=== PATIENT | female | born 1955 | race Caucasian/White ===

== ENCOUNTER 2019-07-10 14:35 | Emergency (ER) | payer OTHER, SELFPAY ==
--- NOTE | 2019-07-10 | RAD_ITS ---
STUDY: X-RAY CHEST REASON FOR EXAM: Female, 63 years old. SYNCOPAL EPISODE 07/07/19. SHE FELL AND HIT HER HEAD TECHNIQUE: Single AP portable view of the chest. COMPARISON: None. FINDINGS: The lungs are clear and expanded. There is no demonstrated pleural abnormality. Normal size heart. Normal mediastinum and jose miguel. Normal visualized pulmonary arteries. There are calcified plaques of the aortic arch. Normal visualized thoracic spine. Normal visualized ribs, clavicles, and shoulders. There is no demonstrated abnormality of the visualized soft tissue structures of the upper abdomen. RAD/Chest 1 View (Portable) IMPRESSION: Calcified plaques of the aortic arch. No acute cardiopulmonary disease process is seen. Electronically Signed: Herman Thomas MD at 16:14 EST , Service support ,
[2019-07-10 14:36] VITALS: BP 172/79; PULSE 97; RESP 15; TEMP 36.8; O2SAT 98; BMI 21.8
--- NOTE | 2019-07-10 15:29 | ED.VISSUMM ---
- ER Visit Summary Date of Service: 07/10/19 Chief Complaint: Passed out on Friday 3 days ago History of Present Illness: The patient is a 63 F no seen in past medical history. No significant surgeries. Patient currently does not have a physician. She is on no medications. She does smoke half a pack of cigarettes a day and previously had been treated for alcohol abuse. Patient states on Friday she was at home walking in her kitchen felt her heart fluttering. And passed out. There was a brief loss of conscious. She did hit her head. She denies any head or neck pain. No headache. No vomiting or diarrhea. She was instructed by the urgent care to come in the day this happened she did not have time and presents today. Physical Examination: Older female no acute distress vital signs are stable afebrile. Pulse ox 90% on room air no signs hypoxia. H EENT exam unremarkable. Pupils round reactive light. Extra motions are intact. She has mild tenderness posterior scalp but there is no large hematoma. No laceration or dried blood. C-spine nontender. Trachea midline. No lymphadenopathy. Lungs clear to auscultation bilaterally. Heart regular rhythm no murmur rate about 90. Chest were nontender. Abdomen soft nontender. Normal bowel sounds no peritoneal signs. Pelvic girdle intact. Nontender. Patient is moving all 4 extremities. Neurovascular intact. No deformity. Nontender. 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 Dorsi plantarflexion intact bilaterally. No edema. Back nontender. Neurologically she is awake and alert. No focal motor or sensory deficits. NIH score of 0. Fingertip to nose and [id number] both within normal limits. Test Results: This x-ray shows normal cardiac silhouette mediastinum. Read as normal both myself and the radiologist. One-view portable. CT brain showed no acute abnormality read by the radiologist reviewed by me. EKG sinus rhythm rate of 65 with no acute signs of CA or ischemia. CBC normal. Hemoglobin 13. Chemistries normal normal creatinine gap. Troponin normal. Patient ambulated to the restroom without any difficulty. Therefore clinically orthostatics are negative. Emergency Department Course and Treatment: Female with a syncopal event also with a head injury when she fell. Exam is very benign. My concern with the syncope was that this is possibly been a dysrhythmia. Treatment Plan: Exam she is doing well at 1722. She will be given a primary care physician to follow-up with her syncope. She may need a Holter or event monitor. She knows return if worse. Disposition: Discharge Impression: Acute syncope Acute fall with head injury This note was generated with [employer] dictation software. It may contain incorrect words, spelling, and punctuation that were not noted in review of the chart prior to signing ED Disposition - Plan for ED Patient: Referrals: NOT,DEFINED [NON-STAFF] -
--- NOTE | 2019-07-10 15:32 | CT_ITS ---
STUDY: CT BRAIN WITHOUT CONTRAST REASON FOR EXAM: Female, 63 years old. SYNCOPE/STRUCK HEAD 07/07, HTN, HX ALCOHOL USE RADIATION DOSAGE (If Supplied By Facility): CTDIvol = ( 44.99 ) mGy, DLP = ( 745.49 ) mGycm TECHNIQUE: Transaxial CT imaging of the brain was performed without administration of intravenous contrast material. Individualized dose optimization techniques were used for this CT. COMPARISON: No relevant priors. FINDINGS: Normal soft tissue structures. Normal calvarium. Normal size ventricles and extra-axial spaces for the patient''s age. Normal white matter tracts of the cerebral hemispheres. Normal basal ganglia and thalami. Normal brainstem. Normal cerebellum. There is no intracranial hemorrhage. There are no findings of an acute ischemic infarction. Normal visualized paranasal sinuses. CT/Brain/Head without Contrast IMPRESSION: Normal unenhanced CT scan of the brain. Electronically Signed: Herman Thomas MD at 16:47 EST , Service support ,
--- NOTE | 2019-07-10 15:39 | EKG12_ITS ---
Test Reason : Blood Pressure : / mmHG Vent. Rate : 084 BPM Atrial Rate : 084 BPM P-R Int : 138 ms QRS Dur : 074 ms QT Int : 406 ms P-R-T Axes : 062 020 047 degrees QTc Int : 479 ms Normal sinus rhythm with sinus arrhythmia Possible Left atrial enlargement Anterior infarct , age undetermined Abnormal ECG Confirmed by MANOJ WEAVER, ILYA ([id number]), business editor TL BANEGAS ([id number]) on 07/13/2019 8:34:45 AM Referred By: HALINA Confirmed By:ILYA ARANDA MD
[2019-07-10 16:21] VITALS: BP 171/71; PULSE 84; RESP 17; O2SAT 98
[2019-07-10 16:24] LABS: Basophil# 0.02 X10^3/uL; Basophil% 0.3 % (0-1); Eosinophils% 1.3 % (0-5); Hemoglobin 13.5 g/dL (12.0-15.0); Lymphocyte % 25.8 % (19-41); Mean Corp Hgb Conc 33.8 g/dL (32-36); Mean Corpuscular Hgb 32.5 pg (27.0-32.0); Mean Corpuscular Volume 96.2 fL (81-99); Mean Platelet Vol. 9.7 fl (6.2-12.0); Monocyte# 0.62 X10^3/uL; NRBC Flagged by Analyzer 0 % (0-5); Neutrophil % 64.3 % (47-70); Platelet Count 263 K/mm3 (150-450); RBC Distribution Width CV 13.2 % (11.6-14.6); RBC Distribution Width SD 47.1 fl (35.1-43.9); Red Blood Count 4.16 M/mm3 (4.2-5.4); White Blood Count 7.8 K/mm3 (4.4-11.0)
[2019-07-10 16:46] LABS: Anion Gap 4 (5-15); BUN 11 mg/dL (7-18); BUN/Creat Ratio 16.6 RATIO (10-20); Calcium,Total 9.4 mg/dL (8.5-10.1); Chloride 106 mmol/L (98-107); Creatinine, Serum 0.66 mg/dL (0.55-1.02); EST Glomerular Filtration Rate 95 mL/min (>60); Est Glom Filt Rate - Afr Amer 115 mL/min (>60); Glucose 96 mg/dL (74-106); Potassium 3.9 mmol/L (3.5-5.1); Sodium Level 138 mmol/L (136-145)
[2019-07-10 17:15] VITALS: BP 166/73; PULSE 86; RESP 22; O2SAT 99
--- NOTE | 2019-07-10 17:25 | ED.DEP ---
ED Disposition - Plan for ED Patient: Disposition: Home or Assisted Living Instructions: SYNCOPE, Unk Cause Referrals: Ramesh Avalos MD [STAFF PHYSICIAN] - As soon as possible Additional Instructions: Follow-up with the doctor listed for further evaluation. Return to the ER if you pass out again. Or you are feeling worse. Stop smoking.
== END 2019-07-10 17:35 | disposition home or self-care (01) ==
PROVIDERS: Emergency Provider Emergency Medicine
DX: R55 Syncope and collapse (principal); S06.9X9A Unspecified intracranial injury with loss of consciousness of unspecified duration, initial encounter; X58.XXXA Exposure to other specified factors, initial encounter; Y93.01 Activity, walking, marching and hiking; Y92.000 Kitchen of unspecified non-institutional (private) residence as the place of occurrence of the external cause; I10 Essential (primary) hypertension; F17.210 Nicotine dependence, cigarettes, uncomplicated
CPT/HCPCS: 70450; 71045; 80048; 84484; 85025; 93005; 99284; A4216

== ENCOUNTER → 2019-10-20 12:02 | Outpatient (CLI) | payer OTHER, SELFPAY ==
--- NOTE | 2019-10-20 12:18 | CDU_ITS ---
Reason For Study: BILATERAL CAROTID BRUITS Rt. Velocities/BP Lt. Velocities/BP Prox CCA 91.2/14.2 cm/sec. Prox CCA 101.8/18.3 cm/sec. Mid CCA 80.7/14.2 cm/sec. Mid CCA 87.0/15.8 cm/sec. Dist CCA 48.1/11.6 cm/sec. Dist CCA 74.8/15.8 cm/sec. Prox ICA 85.8/29.4 cm/sec. Prox ICA 120.4/30.9 cm/sec. Mid ICA 87.1/26.9 cm/sec. Mid ICA 113.1/30.9 cm/sec. Dist ICA 94.4/22.0 cm/sec. Dist ICA 92.0/31.8 cm/sec. Rt. ICA/CCA = 94.4/80.7=1.2. Lt. ICA/CCA = 120.4/84.0=1.4. Prox ECA 103.9/10.8 cm/sec. Prox ECA 95.6/10.9 cm/sec. Rt. Vert. 82.2/18.3 cm/sec. Lt. Vert. 72.3/19.5 cm/sec. Right Extracranial There is homogeneous, smooth atherosclerotic plaque noted in the right common carotid artery. There is heterogeneous, irregular atherosclerotic plaque noted in the right internal carotid artery. There is heterogeneous, smooth atherosclerotic plaque noted in the right external carotid artery. Antegrade flow is noted in the right vertebral artery. Left Extracranial There is homogeneous, smooth atherosclerotic plaque noted in the left common carotid artery. There is heterogeneous, irregular atherosclerotic plaque noted in the left internal carotid artery. There is intimal thickening but no significant atherosclerotic plaque noted in the left external carotid artery. Antegrade flow is noted in the left vertebral artery. Procedure Carotid Duplex 91991. The exam was diagnostic. Exam performed in department. Interpretation Summary Mild (<50%) stenosis right extracranial internal carotid. Mild (<50%) stenosis left extracranial internal carotid. Flow within the vertebral arteries is antegrade bilaterally. Ordering Physician: Debo Edwards Referring Physician: Debo Edwards Performed By: Geovanna Malave, JACEK, RVT
--- NOTE | 2019-10-20 14:00 | STRESSREP_ITS ---
Stress Test Report Treadmill EKG: Resting EKG: Normal sinus rhythm, normal axis, poor progression across the precordium most likely secondary to lead misplacement. Treadmill EKG: The patient exercised according to a Marek protocol for 3 minutes and 9 seconds achieving a workload of 4.70 METS. The resting heart rate was 81 bpm and ramez to maximum 1 5 5 bpm which represents 100% of the maximal age- predicted heart rate. Resting blood pressure was 158/82, and ramez to max of 212/84. Test was terminated due to attainment target heart rate and dyspnea. During exercise the patient's heart rate increased as expected. The patient had no dynamic EKG changes to suggest ischemia. No arrhythmias noted. Conclusions normal, adequate, treadmill EKG. Negative for ischemia by EKG criteria. No anginal symptoms noted. No arrhythmias noted. Hypertensive blood pressure response to exercise. Poor exercise capacity for age. Test terminated due to dyspnea which may be an anginal equivalent. Recommend clinical correlation or alternative mode of testing if coronary occlusive disease is strongly suspected. Patient tolerated procedure well. No complications.
== END ==
PROVIDERS: Referring Provider Family Medicine; Visit Provider Family Medicine
DX: R94.31 Abnormal electrocardiogram [ECG] [EKG] (principal); R09.89 Other specified symptoms and signs involving the circulatory and respiratory systems
CPT/HCPCS: 93017; 93880

== ENCOUNTER 2020-03-02 23:39 | Inpatient (IN) | payer MEDICARE, SELFPAY ==
[2020-03-02 23:39] VITALS: BP 145/92; PULSE 101; RESP 18; TEMP 36.4; O2SAT 95; BMI 23.9
[2020-03-03] VITALS (11 sets, daily range): BP systolic 131–150; BP diastolic 63–86; PULSE 100–118; RESP 16–18; TEMP 36.5–37.1; O2SAT 93–96; BMI 20.3; BMI 20.4
--- NOTE | 2020-03-03 00:12 | ED.DCSUM_ITS ---
History of Present Illness Chief Complaint: ETOH Intox Informant: Patient Narrative: Patient presents requesting detox. She is a chronic alcoholic. She underwent detox about 15 months ago, and again 2 or 3 months ago. She followed up at [facility], but did not feel she got the appropriate treatment, she states I need a psychiatrist as well referring to the fact that she has a psychologic component to her addiction. She presents with her significant other supporting her, she does not have any withdrawal symptoms right now, as she recently has drank alcohol. She denies any recent injury, illness, or physical symptoms right now. She admits to being depressed about her alcohol problem, but is not suicidal. She denies any recent exposure to COVID-19 that she knows of. She drinks about 1 bottle or less of vodka per day and no other addictive substances except for cigarettes. - Past Medical History (1) Hypertension Status: Chronic (2) Alcoholism Status: Chronic Past Medical History - Allergies and Home Meds Allergies/Adverse Reactions: Allergies latex Allergy (Verified 03/02/20 23:43) Hives Penicillins [PCN] Allergy (Verified 03/02/20 23:42) Anaphylaxis Primary Care Physician: Care Physician,No Primary [Primary Care Provider] - Lives: Spouse/ Significant Other Smoking Status: Current every day smoker Alcohol: Heavy Drugs: None Review of Systems General: Denies: Chills, Fever, Sweats Eyes: Denies: Visual changes - bilaterally, Diplopia ENT: Denies: Rhinorrhea, Sore throat Cardiovascular: Denies: Chest pain, Palpitations Respiratory: Denies: Dyspnea, Cough, Dyspnea on exertion Gastrointestinal: Denies: Abdominal pain, Nausea, Vomiting, Diarrhea, Melena, Hematochezia Genitourinary: Denies: Dysuria, Hematuria, Frequency Musculoskeletal: Denies: Back pain, Extremity Pain Skin: Denies: Rash, Wounds Neurological: Denies: Headache, Weakness, Numbness Psych: Reports: Depression. Denies: Suicidal thoughts, Suicidal ideations Physical Exam Vital Signs/Narrative: Vital Signs Temp Pulse Resp BP Pulse Ox 03/02/20 23:39 97.6 F L 101 H 18 145/92 H 95 Inital Vital Signs reviewed: Yes General: Well nourished, Well developed, No Acute Distress Head: Normocephalic, Atraumatic Eyes: Perrl, EOMI ENT: Moist mucous membranes, No rhinorrhea Neck: Supple, Nontender Cardiovascular: Regular rate, Regular rhythm, No murmurs Respiratory: No distress, CTA bilaterally, Chest nontender Abdomen: Soft, Nontender, Nondistended, Normal bowel sounds Back: Nontender, Normal Inspection Extremities: Nontender, No edema Skin: Normal color, No rash Neurological: Alert, Oriented x3, Cranial nerves II-XII grossly intact, Normal Strength, Normal Sensation, - - Intoxicated, cooperative Psychological: Normal Mood, Depressed, Tearful Diagnostic/Tx/Re-eval Laboratory Results 03/03/20 03/03/20 03/03/20 00:35 00:35 00:35 WBC 5.7 RBC 4.20 Hgb 13.6 Hct 39.4 MCV 93.8 MCH 32.4 H MCHC 34.5 RDW Std Deviation 45.4 H RDW Coeff of Clari 13.2 Plt Count 131 L MPV 10.3 Immature Gran % (Auto) 0.400 Neut % (Auto) 70.9 H Lymph % (Auto) 18.9 L [place] % (Auto) 9.2 Eos % (Auto) 0.4 Baso % (Auto) 0.2 Absolute Neuts (auto) 4.0 Absolute Lymphs (auto) 1.07 Nucleated RBC % 0 Sodium 131 L Potassium 3.8 Chloride 88 L Carbon Dioxide 28.0 Anion Gap 15 BUN 13 Creatinine 0.64 Estim Creat Clear Calc 45.78 Est GFR (MDRD) Af Amer 119 Est GFR (MDRD) Non-Af 98 BUN/Creatinine Ratio 20.2 H Glucose 87 Calcium 9.4 Total Bilirubin 1.60 H AST 526 H ALT 253 H Alkaline Phosphatase 152 H Total Protein 8.3 H Albumin 4.1 Globulin 4.2 Albumin/Globulin Ratio 1.0 Urine Opiates Screen Urine Methadone Screen Ur Barbiturates Screen Ur Phencyclidine Scrn Ur Amphetamines Screen U Methamphetamin-MDMA U Benzodiazepines Scrn Urine Cocaine Screen U Cannabinoids Screen Ur Drug Screen Comment Ethyl Alcohol Cancelled 03/03/20 03/03/20 00:45 01:20 WBC RBC Hgb Hct MCV MCH MCHC RDW Std Deviation RDW Coeff of Clari Plt Count MPV Immature Gran % (Auto) Neut % (Auto) Lymph % (Auto) [place] % (Auto) Eos % (Auto) Baso % (Auto) Absolute Neuts (auto) Absolute Lymphs (auto) Nucleated RBC % Sodium Potassium Chloride Carbon Dioxide Anion Gap BUN Creatinine Estim Creat Clear Calc Est GFR (MDRD) Af Amer Est GFR (MDRD) Non-Af BUN/Creatinine Ratio Glucose Calcium Total Bilirubin AST ALT Alkaline Phosphatase Total Protein Albumin Globulin Albumin/Globulin Ratio Urine Opiates Screen NEGATIVE Urine Methadone Screen NEGATIVE Ur Barbiturates Screen NEGATIVE Ur Phencyclidine Scrn NEGATIVE Ur Amphetamines Screen NEGATIVE U Methamphetamin-MDMA NEGATIVE U Benzodiazepines Scrn NEGATIVE Urine Cocaine Screen NEGATIVE U Cannabinoids Screen NEGATIVE Ur Drug Screen Comment Ethyl Alcohol 279.0 - Medical Decision Making Patient has mildly elevated liver enzymes consistent with alcohol injury, mildly elevated total bilirubin. She is not clinically jaundiced. Will discuss with hospitalist for admission for inpatient detox from alcohol. ED Disposition - Plan for ED Patient: Disposition: Acute Care Hospital [facility] Diagnosis: Alcohol dependence, Alcoholism Referrals: Care Physician,No Primary [Primary Care Provider] -
[2020-03-03 00:55] LABS: Absolute Lymphocyte Count 1.07 X10^3/uL (0.83-4.51); Basophil# 0.01 X10^3/uL; Basophil% 0.2 % (0-1); Eosinophil# 0.02 X10^3/uL; Eosinophils% 0.4 % (0-5); Hematocrit 39.4 % (37-47); Hemoglobin 13.6 g/dL (12.0-15.0); Lymphocyte # 1.07 X10^3/ul (4.0); Lymphocyte % 18.9 % (19-41); Mean Corp Hgb Conc 34.5 g/dL (32-36); Mean Corpuscular Hgb 32.4 pg (27.0-32.0); Mean Corpuscular Volume 93.8 fL (81-99); Mean Platelet Vol. 10.3 fl (6.2-12.0); Monocyte# 0.52 X10^3/uL; Monocyte% 9.2 % (0-10); NRBC Flagged by Analyzer 0 % (0-5); Neutrophil # 4.01 X10^3/uL (2.7-7.7); Neutrophil % 70.9 % (47-70); Platelet Count 131 K/mm3 (150-450); RBC Distribution Width CV 13.2 % (11.6-14.6); RBC Distribution Width SD 45.4 fl (35.1-43.9); White Blood Count 5.7 K/mm3 (4.4-11.0)
[2020-03-03 01:11] LABS: AST(SGOT) 526 U/L (15-37); Alanine Aminotransfer ALT/SGPT 253 U/L (13-56); Albumin, Serum 4.1 g/dL (3.2-5.0); Alkaline Phosphatase 152 U/L (45-117); Anion Gap 15 (5-15); BUN 13 mg/dL (7-18); BUN/Creat Ratio 20.2 RATIO (10-20); Calcium,Total 9.4 mg/dL (8.5-10.1); Chloride 88 mmol/L (98-107); Creatinine, Serum 0.64 mg/dL (0.55-1.02); EST Glomerular Filtration Rate 98 mL/min (>60); Est Glom Filt Rate - Afr Amer 119 mL/min (>60); Estimated Creatinine Clearance 45.78 ml/min; Globulin 4.2 g/dL (2.2-4.2); Glucose 87 mg/dL (74-106); Potassium 3.8 mmol/L (3.5-5.1); Protein, Total 8.3 g/dL (6.4-8.2); Sodium Level 131 mmol/L (136-145)
[2020-03-03 01:44] LABS: Amphetamine Urine VISTA NEGATIVE (<1000 ng/mL); Barbiturate Urine VISTA NEGATIVE (< 200 ng/mL); Benzodiazepine Urine VISTA NEGATIVE (< 200 ng/mL); Cocaine Urine VISTA NEGATIVE (< 300 ng/mL); Ecstacy Urine VISTA NEGATIVE (< 500 ng/mL); Methadone Urine VISTA NEGATIVE (< 300 ng/mL); PCP Urine VISTA NEGATIVE (< 25 ng/mL); THC Urine VISTA NEGATIVE (< 50 ng/mL); Vista UDS pH Range 6
--- NOTE | 2020-03-03 03:17 | HP.PCM_ITS ---
History of Present Illness Date of Admission: 03/03/20 Chief Complaint: EtOH use The patient is a 64 year old F with a PMH as below who presents to the hospital with alcohol abuse history. She is recent in the hospital few months ago for alcohol withdrawal. She goes to 180 intermittently but states that usually she is on and off with drinking and only starts drinking again when she has difficulty at home. Alcohol level was 279 on admission. AST and ALT were both elevated, and an appropriate ratio for alcohol use. Past Medical History Past Medical History (Chronic Problems): Chronic Problems Hypertension (Chronic) Alcoholism (Chronic) Allergies latex Allergy (Verified 03/02/20 23:43) Hives Penicillins [PCN] Allergy (Verified 03/02/20 23:42) Anaphylaxis Home Medications: Ambulatory Orders Medication Instructions Recorded Amlodipine [Norvasc] 5 mg PO DAILY 03/02/20 Surgical History: no surgical history Lives: Spouse/ Significant Other Smoking Status: Current every day smoker Tobacco Use: Cigarettes Alcohol: Heavy Drugs: None - *Family History Maternal History Items: Diabetes, High Cholesterol, Heart Disease, Hypertension Paternal History Items: - - Aortic aneurysm Review of Systems Constitutional: Denies: Chills, Fever, Weight Change HEENT: Denies: Head Aches, Sinus Congestion, Sinus Drainage Cardiovascular: Denies: Chest Pain, Palpitations Respiratory: Denies: Cough, Shortness of breath at rest, Sputum production Gastrointestinal: Denies: Abdominal Pain, Nausea, Vomiting Genitourinary: Denies: Dysuria Musculoskeletal: Denies: Joint Pain, Joint Tenderness Skin: Denies: Rash, Wounds Neurological: Denies: Numbness, Tingling, Focal weakness Psychiatric: Reports: Anxiety, Depression Hematologic/ Lymphatic: Denies: Easy Bruising, Easy Bleeding VTE Information - Inpt Only VTE Present on Admission: No Patient Problems: Active and Suspected Problems Alcohol dependence (Acute) - Physical Exam Vitals/I&O's: Vital Signs Temp Pulse Resp BP Pulse Ox 98.5 F 114 H 18 131/66 H 93 03/03/20 02:21 03/03/20 02:21 03/03/20 02:21 03/03/20 02:21 03/03/20 02:21 Oxygen Delivery Method Room Air Weight: 114 lb 13.773 oz Body Mass Index (BMI) 20.3 General: Alert, Oriented x3, Cooperative, No apparent distress, - - Thin HEENT: Atraumatic, PERRLA, EOMI, Normocephalic Oral: Moist Mucosa Neck: Supple, No JVD Lungs: Clear to auscultation, Normal air movement, No rhonchi, No rales, Wheezes - Mild wheeze mostly on the left Cardiovascular: Regular rate, Regular Rhythm, Normal S1, Normal S2, No murmurs Abdomen: Soft, Non Tender, Non-Distended, No Hepato-splenomegaly Extremities: No edema, Capillary Refill Less than 3 Seconds Skin: No rashes, No breakdown Neurological: Neuro grossly intact, Sensory exam intact to light touch and pain Psych/Mental Status: Anxious Laboratory Results 03/03/20 00:35: WBC 5.7, RBC 4.20, Hgb 13.6, Hct 39.4, MCV 93.8, MCH 32.4 H, MCHC 34.5, RDW Std Deviation 45.4 H, RDW Coeff of Clari 13.2, Plt Count 131 L, MPV 10.3, Immature Gran % (Auto) 0.400, Neut % (Auto) 70.9 H, Lymph % (Auto) 18.9 L , [place] % (Auto) 9.2, Eos % (Auto) 0.4, Baso % (Auto) 0.2, Absolute Neuts (auto) 4.0, Absolute Lymphs (auto) 1.07, Nucleated RBC % 0 03/03/20 00:35: Sodium 131 L, Potassium 3.8, Chloride 88 L, Carbon Dioxide 28.0, Anion Gap 15, BUN 13, Creatinine 0.64, Estim Creat Clear Calc 45.78, Est GFR (MDRD) Af Amer 119, Est GFR (MDRD) Non-Af 98, BUN/Creatinine Ratio 20.2 H, Glucose 87, Calcium 9.4, Total Bilirubin 1.60 H, AST 526 H, ALT 253 H, Alkaline Phosphatase 152 H, Total Protein 8.3 H, Albumin 4.1, Globulin 4.2, A lbumin/Globulin Ratio 1.0 03/03/20 00:35: Ethyl Alcohol Cancelled 03/03/20 00:45: Urine Opiates Screen NEGATIVE, Urine Methadone Screen NEGATIVE, Ur Barbiturates Screen NEGATIVE, Ur Phencyclidine Scrn NEGATIVE, Ur Amphetamines Screen NEGATIVE, U Methamphetamin-MDMA NEGATIVE, U Benzodiazepines Scrn NEGATIVE, Urine Cocaine Screen NEGATIVE, U Cannabinoids Screen NEGATIVE, Ur Drug Screen Comment 03/03/20 01:20: Ethyl Alcohol 279.0 Current Medications Nutritional Formula (Lactose Free) (Ensure Enlive) 120 ml PO 4X/DAY MARLENY Sodium Chloride () 10 - 40 ml IV UD PRN PRN Reason: SALINE FLUSH Assessment/Plan All Active Problems Alcohol dependence (Acute) 1. Alcohol abuse -AST:ALT is elevated and appropriate ratio -We will start her on alcohol withdrawal protocol with phenobarb taper -Plan for 180 at discharge 2. HTN -Blood pressure stable -Continue with Norvasc 3. Tobacco abuse -She does not want any nicotine replacement at this time -Discussed cessation DVT: Ambulation Inpatient E&M: 17893 Init Hosp L2
[2020-03-03] MEDS: Phenobarbital 32.4 MG Tablet 64.8 MG PO ×6 (04:16→23:48)
[2020-03-03] MEDS: Thiamine Hydrochloride 100 MG Tablet PO (08:28)
[2020-03-03] MEDS: Folic Acid 1 MG Tablet PO (08:28)
[2020-03-03] MEDS: amLODIPine 5 MG Tablet PO (08:28)
--- NOTE | 2020-03-03 10:34 | ADDICTION ---
This magnetic tape typewriter operator met attempted to meet with patient in her room. Patient stated that she was very tired and presented as mildly disoriented and unable to effectively process assessments and discharge planning. She requested to meet with someone tomorrow to complete required documentation. This magnetic tape typewriter operator informed MS3 SW and will inform 24 Hour Navigator that she will need to be seen on 03/04/2020.
[2020-03-03] MEDS: Loperamide 2 MG Capsule PO (14:35)
[2020-03-03] MEDS: hydrOXYzine PAM 25 MG Capsule 50 MG PO (15:25)
--- NOTE | 2020-03-03 17:02 | ECHOD_ITS ---
Reason For Study: Arrhythmia Procedure This was a 2D Doppler, Color Flow transthoracic echocardiogram. Exam performed portable in patient room. Left Ventricle Normal left ventricle. Concentric left ventricular hypertrophy. Sigmoid septum present with dynamic outflow obstruction. The estimated ejection fraction is 70 %. Stage 1 diastolic dysfunction. Right Ventricle Normal systolic function. Atria Normal left atrium. Normal right atrium. Mitral Valve There is mild to moderate mitral annular calcification. Mild (1+) mitral valve insufficiency. Tricuspid Valve Mild tricuspid valve insufficiency. Right ventricular systolic pressure estimated to be 30 mmHg. Aortic Valve Mild focal aortic valve calcification. Mild aortic stenosis. Peak aortic valve gradient 18mm mmHg. Mean aortic valve gradient 9mm mmHg. LV outflow across the hypertrophic sigmoid septum grdient of 67 mm suggetive of moderate LV outflow dynamic obstruction. Pulmonic Valve No eccentric pulmonic valve insufficiency. Great Vessels Normal inferior vena cava. Inferior vena cava collapse with respiration. Pericardium/Pleural There is no pleural effusion. MMode/2D Measurements & Calculations LVIDd: 2.2 cm IVSd: 1.7 cm LVOT diam: 2.1 cm LVIDs: 1.4 cm LVPWd: 1.4 cm LVOT area: 3.4 cm2 RVDd: 3.5 cm FS: 35.8 % Ao root diam: 3.1 cm LAV(MOD-bp): 46.7 ml LVAd ap4: 15.5 cm2 LAV(MOD-bp) Indexed: 31.0 ml/m2 EDV(MOD-sp4): 30.8 ml LAV(MOD-sp2): 53.4 ml EDV(sp4-el): 31.9 ml LAV(MOD-sp4): 38.3 ml LVAs ap4: 6.4 cm2 ESV(MOD-sp4): 7.5 ml ESV(sp4-el): 7.0 ml EF(MOD-sp4): 75.7 % EF(sp4-el): 78.1 % SV(MOD-sp4): 23.3 ml SV(sp4-el): 24.9 ml LA A4 area: 15.6 cm2 LA dimension(2D): 3.0 cm RA A4 area: 7.9 cm2 Time Measurements MV dec time: 0.08 sec Doppler Measurements & Calculations MV E max celestino: 64.2 cm/sec Lat Peak E' Celestino: 7.0 cm/sec Med Peak E' Celestino: 3.5 cm/sec MV A max celestino: 154.8 cm/sec E/E' lat: 9.1 E/E' med: 18.4 MV E/A: 0.41 MV V2 max: 175.2 cm/sec MV P1/2t max celestino: 102.7 cm/sec Ao V2 max: 208.5 cm/sec MV max P.3 mmHg MV P1/2t: 130.2 msec Ao max P.6 mmHg MV V2 mean: 106.7 cm/sec Ao V2 mean: 144.6 cm/sec MV mean P.1 mmHg MV dec slope: 231.1 cm/sec2 Ao mean P.4 mmHg MV V2 VTI: 32.9 cm MVA(P1/2t): 1.7 cm2 Ao V2 VTI: 37.1 cm MVA(VTI): 3.5 cm2 AGUSTO(I,D): 3.1 cm2 AGUSTO(V,D): 3.0 cm2 LV V1 max: 180.6 cm/sec SV(LVOT): 113.4 ml PA V2 max: 114.6 cm/sec LV V1 max P.1 mmHg LV V1 mean P.6 mmHg LV V1 mean: 131.7 cm/sec LV V1 VTI: 32.9 cm TR max celestino: 257.6 cm/sec TR max P.5 mmHg Interpretation Summary Stage 1 diastolic dysfunction. Concentric left ventricular hypertrophy. Sigmoid septum present with dynamic outflow obstruction The estimated ejection fraction is 70 %. Mild (1+) mitral valve insufficiency. Mild aortic stenosis. Peak aortic valve gradient 18mm mmHg. Mean aortic valve gradient 9mm mmHg. LV outflow across the hypertrophic sigmoid septum grdient of 67 mm suggetive of moderate LV outflow dynamic obstruction Ordering Physician: Patrice Oconnor Performed By: Rita Murray, JACEK, RVT
--- NOTE | 2020-03-03 18:21 | CCHN_ITS ---
Hospitalist Note Patient was seen and examined briefly today, on auscultation of the heart she has a murmur at the apex-patient states she has been told she has a heart murmur before but to her knowledge she has never been worked up for the murmur. Patient was also noted to have some ectopy on auscultation of the heart, I placed the patient on a phototypesetting equipment monitor and it showed occasional PACs. At this time patient's medications will be reviewed and adjusted as needed.
[2020-03-04] VITALS (18 sets, daily range): BP systolic 119–149; BP diastolic 56–78; PULSE 67–108; RESP 16–18; TEMP 36.5–37.2; O2SAT 88–100
[2020-03-04] MEDS: 0.9% Saline Lock 10 ML Syringe IV (00:05)
[2020-03-04] MEDS: Phenobarbital 32.4 MG Tablet 64.8 MG PO ×6 (03:54→22:57)
[2020-03-04] MEDS: Thiamine Hydrochloride 100 MG Tablet PO (08:07)
[2020-03-04] MEDS: Folic Acid 1 MG Tablet PO (08:07)
[2020-03-04] MEDS: amLODIPine 5 MG Tablet PO (10:06)
[2020-03-04] MEDS: predniSONE 20 MG Tablet 40 MG PO (11:58)
[2020-03-04] MEDS: Albuterol 2.5 MG/3 ML VIAL.NEB. INHALATION ×2 (12:10→19:06)
--- NOTE | 2020-03-04 12:12 | PCM.PROGNOTE ---
Patient Problems: Active and Suspected Problems Alcohol dependence (Acute) Subjective: Patient was seen and examined today, he does not complain of excessive nervousness or tremor at this time. Monitor showed only PACs so I discontinued her monitor today. Her echo is pending at the time of this dictation. - Physical Exam Vitals/I&O's: Vital Signs Temp Pulse Resp BP Pulse Ox 98.3 F 108 H 16 134/68 H 92 03/04/20 11:57 03/04/20 11:57 03/04/20 11:57 03/04/20 11:57 03/04/20 11:57 Oxygen Flow Rate (L/min) 1 Oxygen Delivery Method Room Air Weight: 52.1 kg Body Mass Index (BMI) 20.3 Intake and Output for Last 24 Hours 03/02/20 03/03/20 03/04/20 23:59 23:59 23:59 Intake Total 1400 / 1400 650 / 650 Balance 1400 / 1400 650 / 650 General: Alert, Oriented x3, Cooperative, No apparent distress, Well developed HEENT: Atraumatic, PERRLA, EOMI, Normocephalic Oral: Moist Mucosa Neck: Supple, Trachea Midline Lungs: Diminished, Wheezes - Scattered expiratory wheezes are noted bilaterally over all lung suresh Cardiovascular: Regular rate, Regular Rhythm, Normal S1, Normal S2, PMI Normal, Murmur, No rub noted, No Gallop Abdomen: Bowel Sounds Present, Soft, Non Tender, Non-Distended Extremities: No clubbing, No cyanosis, No edema, Capillary Refill Less than 3 Seconds Skin: No rashes, No breakdown Musculoskeletal: No Tenderness to Palpation of Joints or Extremities, Cachexia Neurological: Cranial nerves II-XII grossly intact, Neuro grossly intact, Sensory exam intact to light touch and pain Psych/Mental Status: Normal Affect, Appropriate, Alert and oriented to time, place, person, mood and affect Current Medications Albuterol Sulfate (Ventolin Aerosols) 2.5 mg INHALATION TID.RT [facility] Amlodipine Besylate (Norvasc) 5 mg PO DAILY [facility] Last Admin: 03/04/20 10:06 Dose: 5 mg Documented by: Folic Acid (Folic Acid) 1 mg PO DAILY@0800 [facility] Last Admin: 03/04/20 08:07 Dose: 1 mg Documented by: Loperamide HCl (Imodium) 2 mg PO Q4H PRN PRN PRN Reason: LOOSE STOOLS Last Admin: 03/03/20 14:35 Dose: 2 mg Documented by: Methocarbamol (Methocarbamol) 750 mg PO 4X/DAY PRN PRN Reason: MUSCLE SPASM Nutritional Formula (Lactose Free) (Ensure Enlive) 120 ml PO 4X/DAY [facility] Last Admin: 03/04/20 10:06 Dose: 120 ml Documented by: Ondansetron HCl (Zofran) 8 mg PO Q8H PRN PRN PRN Reason: NAUSEA Phenobarbital (Phenobarbital) 64.8 mg PO Q4H MARLENY; Taper Stop: 03/07/20 11:44 Last Admin: 03/04/20 11:58 Dose: 64.8 mg Documented by: Prednisone () 40 mg PO DAILY@0800 [facility] Stop: 03/07/20 08:00 Sodium Chloride () 10 - 40 ml IV UD PRN PRN Reason: SALINE FLUSH Last Admin: 03/04/20 00:05 Dose: 10 ml Documented by: Thiamine HCl (Vitamin B1) 100 mg PO DAILYCM [facility] Last Admin: 03/04/20 08:07 Dose: 100 mg Documented by: Trazodone HCl (Desyrel) 100 mg PO QHS PRN PRN PRN Reason: INSOMNIA Medical Necessity - Tobacco Use Smoking Status: Current every day smoker Tobacco Use: Cigarettes Assessment/Plan All Active Problems Alcohol dependence (Acute) #1 acute alcohol withdrawal-continue present medications, she will need follow-up as an outpatient #2 chronic obstructive pulmonary disease-I think is likely she has COPD, I will place her on albuterol aerosols [address] her on a short course of prednisone 20 mg daily. #3 PACs-probably from lung disease, no treatment #4 systolic murmur-etiology unknown, await echocardiogram #5 essential hypertension #6 chronic alcoholism Inpatient E&M: 61352 Subs Hosp L2
--- NOTE | 2020-03-04 14:56 | ADDICTION ---
This chief underwriter met with Shelia to complete ASAM, MSE, AUDIT assessments and to plan for discharge. she appears appropriate for the 4.0 LOC. Her discharge plan is as follows: - Sister to provide transportation upon d/c - She will schedule an appointment with Angela Baileypolly for AoD outpatient treatment on 03/06/2020. (If she is not d/c by 03/06 at 9am, this chief underwriter will assist with scheduling). - She is scheduled to meet with Dr. Summers on 03/15/2020 and will discuss sleep barriers that lead to drinking. - This chief underwriter will research [facility] apartments, by her request, and will provide information to Angela Baileyp[facility].
[2020-03-05] VITALS (8 sets, daily range): BP systolic 92–132; BP diastolic 47–65; PULSE 68–106; RESP 14–18; TEMP 36.3–37.1; O2SAT 95–97
[2020-03-05] MEDS: traZODone 100 MG Tablet PO (00:13)
[2020-03-05] MEDS: Phenobarbital 32.4 MG Tablet 64.8 MG PO (02:47)
[2020-03-05] MEDS: Albuterol 2.5 MG/3 ML VIAL.NEB. INHALATION ×3 (07:13→19:03)
[2020-03-05] MEDS: Ondansetron 8 MG Tablet PO (07:59)
[2020-03-05] MEDS: Folic Acid 1 MG Tablet PO (10:01)
[2020-03-05] MEDS: Thiamine Hydrochloride 100 MG Tablet PO (10:01)
[2020-03-05] MEDS: amLODIPine 5 MG Tablet PO (10:01)
[2020-03-05] MEDS: Carvedilol 6.25 MG Tablet PO ×2 (10:01→22:28)
[2020-03-05] MEDS: predniSONE 20 MG Tablet 40 MG PO (10:04)
--- NOTE | 2020-03-05 11:34 | PN_ITS ---
Patient Problems: Active and Suspected Problems Alcohol dependence (Acute) Subjective: Was seen and examined today, she was walking with physical therapy and complained that she was feeling weak on her present medications. I decided to taper her phenobarb down and I told her this. Patient later told me that she was considering checking her self out today from the hospital-I told her that if she did this I would not give her any medication for her heart and no medication for detox. I asked the patient to seriously consider staying. - Physical Exam Vitals/I&O's: Vital Signs Temp Pulse Resp BP Pulse Ox 98.2 F 106 H 18 129/64 H 95 03/05/20 08:01 03/05/20 08:01 03/05/20 08:01 03/05/20 08:01 03/05/20 08:01 Oxygen Flow Rate (L/min) 1 Oxygen Delivery Method Room Air Weight: 52.1 kg Body Mass Index (BMI) 20.3 Intake and Output for Last 24 Hours 03/03/20 03/04/20 03/05/20 23:59 23:59 23:59 Intake Total 1400 / 1400 900 / 900 Balance 1400 / 1400 900 / 900 General: Alert, Oriented x3, Cooperative, No apparent distress, Well developed, Well nourished HEENT: Atraumatic, PERRLA, EOMI, Normocephalic Oral: Moist Mucosa Neck: Supple, Trachea Midline, Thyroid Normal Size and Texture Lungs: Normal air movement, No wheeze, No rales, Rhonchi - Scattered expiratory rhonchi are noted bilaterally Cardiovascular: Regular rate, Regular Rhythm, Normal S1, Normal S2, Murmur - 2/6 systolic murmur is noted at the right sternal border and the apex Abdomen: Bowel Sounds Present, Soft, Non Tender Extremities: No edema, Capillary Refill Less than 3 Seconds Skin: No rashes, No breakdown Musculoskeletal: No Tenderness to Palpation of Joints or Extremities Neurological: Cranial nerves II-XII grossly intact, Neuro grossly intact, Sensory exam intact to light touch and pain, Coordination normal Psych/Mental Status: Normal Affect, Appropriate, Alert and oriented to time, place, person, mood and affect Current Medications Albuterol Sulfate (Ventolin Aerosols) 2.5 mg INHALATION TID.RT [facility] Last Admin: 03/05/20 07:13 Dose: 2.5 mg Documented by: Amlodipine Besylate (Norvasc) 5 mg PO DAILY [facility] Last Admin: 03/05/20 10:01 Dose: 5 mg Documented by: Carvedilol (Coreg) 6.25 mg PO BID [facility] Last Admin: 03/05/20 10:01 Dose: 6.25 mg Documented by: Folic Acid (Folic Acid) 1 mg PO DAILY@0800 [facility] Last Admin: 03/05/20 10:01 Dose: 1 mg Documented by: Loperamide HCl (Imodium) 2 mg PO Q4H PRN PRN PRN Reason: LOOSE STOOLS Last Admin: 03/03/20 14:35 Dose: 2 mg Documented by: Methocarbamol (Methocarbamol) 750 mg PO 4X/DAY PRN PRN Reason: MUSCLE SPASM Nicotine Polacrilex (Rugby Nicotine (Pbkc)) 4 mg PO Q2H PRN PRN PRN Reason: Nicotine Craving Nutritional Formula (Lactose Free) (Ensure Enlive) 120 ml PO 4X/DAY [facility] Last Admin: 03/05/20 10:02 Dose: Not Given Documented by: Ondansetron HCl (Zofran) 8 mg PO Q8H PRN PRN PRN Reason: NAUSEA Last Admin: 03/05/20 07:59 Dose: 8 mg Documented by: Phenobarbital (Phenobarbital) 32.4 mg PO TID [facility] Prednisone () 40 mg PO DAILY@0800 [facility] Stop: 03/07/20 08:00 Last Admin: 03/05/20 10:04 Dose: 40 mg Documented by: Sodium Chloride () 10 - 40 ml IV UD PRN PRN Reason: SALINE FLUSH Last Admin: 03/04/20 00:05 Dose: 10 ml Documented by: Sodium Chloride () 10 - 40 ml IV UD PRN PRN Reason: SALINE FLUSH Thiamine HCl (Vitamin B1) 100 mg PO DAILYCM [facility] Last Admin: 03/05/20 10:01 Dose: 100 mg Documented by: Trazodone HCl (Desyrel) 100 mg PO QHS PRN PRN PRN Reason: INSOMNIA Last Admin: 03/05/20 00:13 Dose: 100 mg Documented by: Medical Necessity - Tobacco Use Smoking Status: Current every day smoker Tobacco Use: Cigarettes Assessment/Plan All Active Problems Alcohol dependence (Acute) #1 acute alcohol withdrawal-I have decided to taper the patient's phenobarbital and see if she tolerates this. #2 chronic obstructive pulmonary disease-I think is likely she has COPD, continue on prednisone and aerosol treatments for now #3 PACs-probably from lung disease, no treatment #4 systolic murmur due to outflow obstruction-subaortic valve, I discussed this with cardiology yesterday, they recommended the use of a beta-josefina on this patient, her echocardiogram was abnormal showing an outflow obstruction-this outflow obstruction under the aortic valve was not severe. Patient was started on carvedilol 6.25 mg twice daily. #5 essential hypertension #6 chronic alcoholism Inpatient E&M: 50720 Subs Hosp L2
[2020-03-06] MEDS: Loperamide 2 MG Capsule PO (00:36)
[2020-03-06] MEDS: traZODone 100 MG Tablet PO (00:36)
[2020-03-06 04:20] VITALS: BP 115/60; PULSE 74; RESP 19; TEMP 36.7; O2SAT 98
[2020-03-06] MEDS: Albuterol 2.5 MG/3 ML VIAL.NEB. INHALATION ×2 (06:55→12:28)
[2020-03-06 06:56] VITALS: PULSE 70; RESP 14; O2SAT 95
[2020-03-06 07:19] VITALS: BP 104/49; PULSE 72; RESP 16; TEMP 37.2; O2SAT 99
[2020-03-06] MEDS: predniSONE 20 MG Tablet 40 MG PO (07:30)
[2020-03-06] MEDS: Thiamine Hydrochloride 100 MG Tablet PO (07:30)
[2020-03-06] MEDS: Folic Acid 1 MG Tablet PO (07:30)
--- NOTE | 2020-03-06 09:20 | DCINST_ITS ---
- Discharge Diagnoses Current Active Problems: Current Active and Chronic Problems Alcoholism (Chronic) Alcohol dependence (Acute) You will use the following diet at home:: No restrictions Your food should be the consistency of: Regular Your liquids should be the consistency of: Regular/Thin Discharge Activity: Return to Normal Activity Weight Bearing Status: Full weight bearing Allergies/Adverse Reactions: Allergies latex Allergy (Verified 03/02/20 23:43) Hives Penicillins [PCN] Allergy (Verified 03/02/20 23:42) Anaphylaxis Medications to take at Discharge Amlodipine [Norvasc] 5 mg PO DAILY #60 tab 03/06/20 Carvedilol [Coreg (Beta Emy)] 6.25 mg PO BID #60 tab 03/06/20 The following prescriptions were given: Carvedilol [Coreg (Beta Emy)] 6.25 mg PO BID #60 tab Transmission Status: Pending to [facility] Amlodipine [Norvasc] 5 mg PO DAILY #60 tab Transmission Status: Pending to [facility] Primary Care Physician: Care Physician,No Primary [Primary Care Provider] - Please follow up with your Primary Care Physician in: in 2-3 weeks Test Results: Test results from this visit will be discussed in further detail at your follow- up appointment, if applicable.
[2020-03-06] MEDS: Carvedilol 6.25 MG Tablet PO (09:40)
[2020-03-06] MEDS: amLODIPine 5 MG Tablet PO (09:40)
--- NOTE | 2020-03-06 10:39 | PHA.DC.MC ---
Pharmacy Service has performed discharge medication reconciliation and counseling for this patient. The patient was counseled on the following discharge medications and changes in medications for homegoing were reviewed. 1. COREG The Reason for Use, instructions for use, and potential side effects were reviewed for all new medications. The patient's questions regarding all of their medications were answered. The patient was able to verbally demonstrate an understanding of their discharge medications. Home Medications Amlodipine [Norvasc] 5 mg PO DAILY #60 tab 03/06/20 Carvedilol [Coreg (Beta Emy)] 6.25 mg PO BID #60 tab 03/06/20 The patient's discharge medication list was reviewed for discrepancies and discrepancies were resolved.
[2020-03-06 12:29] VITALS: PULSE 69; RESP 14
--- NOTE | 2020-03-06 15:26 | DS.PCM_ITS ---
Discharge Date and Diagnosis Date of Admission: 03/03/20 Date of Discharge: 03/06/20 - Primary Discharge Diagnosis Acute Problems: #1 acute alcohol withdrawal #2 chronic obstructive pulmonary disease without exacerbation #3 PACs #4 systolic murmur due to outflow obstruction-subaortic valve #5 essential hypertension #6 chronic alcoholism - Secondary Discharge Diagnosis Chronic Problems: Chronic Problems Hypertension (Chronic) Alcoholism (Chronic) Hospital Course and Treatment Operations: None Procedures: None Summary of Care Provided: The patient is a 64 year old F who was seen in the emergency room at [facility] requesting services for detox from alcohol. Patient had undergone previous detox 15 months prior and again 2 to 3 months prior to being seen in the emergency room. Labs obtained in the emergency room showed elevations of the patient's liver enzymes secondary to alcoholic hepatitis, patient was not symptomatic with this. She was admitted to [place] [address], orders were placed using the order set for alcohol detox, on examination patient was noted to have a systolic murmur and she underwent an echocardiogram which showed an area of subaortic stenosis which was not severe, patient was placed on a beta-emy. Patient was placed on a monitor briefly and was noted to have occasional PACs which were not felt to be significant. Patient was placed on a brief course of oral corticosteroids and was given 3 times a day aerosol treatments due to wheezing. This was felt to be secondary to COPD without exacerbation On 03/06/2020, patient was seen and examined: On examination she appeared in good health and spirits, she does not appear to be in any distress. Vital signs as documented. Skin warm and dry and without overt rashes. Neck without JVD, thyroid appears normal, trachea is midline, neck is supple. Lungs clear, normal air movement was noted. Heart exam notable for regular rhythm, normal sounds and absence of murmurs, rubs or gallops. Abdomen unremarkable and without evidence of organomegaly, masses, or abdominal aortic enlargement, bowel sounds are present in all 4 quadrants, no abdominal tenderness was noted. Extremities nonedematous, no cyanosis was noted, no clubbing was noted. Neuro: Cranial nerves II through XII are grossly intact, no focal motor deficits were noted, se nsation to light touch and pinprick is intact, motor exam 5/5 throughout. Psych: Patient is alert and oriented x3, she does not appear anxious or depressed, she does not appear agitated. Patient appeared to be stable for discharge on 03/06/2020, she was instructed to follow-up with the PCP regarding her subaortic stenosis. She was to follow-up with 180 concerning outpatient detox program. - Physical Exam Vitals/I&O's: Vital Signs Temp Pulse Resp BP Pulse Ox 98.9 F 69 14 104/49 L 99 03/06/20 07:19 03/06/20 12:29 03/06/20 12:29 03/06/20 07:19 03/06/20 07:19 Oxygen Flow Rate (L/min) 1 Oxygen Delivery Method Room Air Weight: 52.1 kg Body Mass Index (BMI) 20.3 Intake and Output for Last 24 Hours 03/04/20 03/05/20 03/06/20 23:59 23:59 23:59 Intake Total 900 / 900 700 / 700 Balance 900 / 900 700 / 700 Discharge Activity: Return to Normal Activity Weight Bearing Status: Full weight bearing Home Medications: Medications to take at Discharge Amlodipine [Norvasc] 5 mg PO DAILY #60 tab 03/06/20 Carvedilol [Coreg (Beta Emy)] 6.25 mg PO BID #60 tab 03/06/20 Following Prescriptions Were Given to Patient: Carvedilol [Coreg (Beta Emy)] 6.25 mg PO BID #60 tab Transmission Status: Received by [facility] Amlodipine [Norvasc] 5 mg PO DAILY #60 tab Transmission Status: Received by [facility] Primary Care Physician: Care Physician,No Primary [Primary Care Provider] - Please follow up with your Primary Care Physician in: in 2-3 weeks Please Follow Up With: 180 Disposition: Home Minutes spent on discharge:: 31 Patient Condition:: Stable Medical Necessity - Tobacco Use Smoking Status: Current every day smoker Tobacco Use: Cigarettes Meaningful Use Info Meaningful Use Diagnoses (Choose all that apply): None applicable Inpatient E&M: 62108 Disch Hosp
== END 2020-03-06 13:10 | disposition home or self-care (01) | DRG 897 ==
LOC: ED 03-03 00:58 → MS3 03-03 03:20
PROVIDERS: Admitting Provider Family Medicine; Emergency Provider Emergency Medicine; Visit Provider Internal Medicine
DX: F10.239 Alcohol dependence with withdrawal, unspecified (principal); F10.229 Alcohol dependence with intoxication, unspecified; J44.9 Chronic obstructive pulmonary disease, unspecified; R01.1 Cardiac murmur, unspecified; I10 Essential (primary) hypertension; F17.210 Nicotine dependence, cigarettes, uncomplicated; Y90.8 Blood alcohol level of 240 mg/100 ml or more; K70.10 Alcoholic hepatitis without ascites
CPT/HCPCS: 80053; 80307; 80320; 85025; 93306; 94640; 97110; 97116; 97162; 97530; 97802; 99284; A4216; G0480

== ENCOUNTER → 2020-07-07 14:41 | Outpatient (CLI) | payer MEDICARE, OTHER, SELFPAY ==
[2020-04-12 14:21] VITALS: BMI 22.6
[2020-07-07 16:43] LABS: Absolute Lymphocyte Count 1.59 X10^3/uL (0.83-4.51); Absolute Neutrophil Count 3.5 X10^3/uL (2.0-7.7); Basophil# 0.01 X10^3/uL; Basophil% 0.2 % (0-1); Eosinophil# 0.05 X10^3/uL; Eosinophils% 0.9 % (0-5); Hematocrit 40.3 % (37-47); Hemoglobin 13.8 g/dL (12.0-15.0); Lymphocyte # 1.59 X10^3/ul (4.0); Mean Corp Hgb Conc 34.2 g/dL (32-36); Mean Corpuscular Hgb 33.7 pg (27.0-32.0); Mean Corpuscular Volume 98.5 fL (81-99); Mean Platelet Vol. 10.8 fl (6.2-12.0); Monocyte# 0.52 X10^3/uL; Monocyte% 9.2 % (0-10); NRBC Flagged by Analyzer 0 % (0-5); Neutrophil % 61.5 % (47-70); Platelet Count 209 K/mm3 (150-450); RBC Distribution Width CV 12.7 % (11.6-14.6); RBC Distribution Width SD 45.6 fl (35.1-43.9); Red Blood Count 4.09 M/mm3 (4.2-5.4); White Blood Count 5.7 K/mm3 (4.4-11.0)
[2020-07-07 16:55] LABS: ALB/GLOB Ratio 0.9 RATIO (0.9-2.4); AST(SGOT) 70 U/L (15-37); Alanine Aminotransfer ALT/SGPT 50 U/L (13-56); Albumin, Serum 3.6 g/dL (3.2-5.0); Alkaline Phosphatase 111 U/L (45-117); Anion Gap 5 (5-15); BUN 8 mg/dL (7-18); BUN/Creat Ratio 11.5 RATIO (10-20); Calcium,Total 9.4 mg/dL (8.5-10.1); Chloride 99 mmol/L (98-107); Cholesterol 195 mg/dL (200); Creatinine, Serum 0.69 mg/dL (0.55-1.02); EST Glomerular Filtration Rate 90 mL/min (>60); Est Glom Filt Rate - Afr Amer 109 mL/min (>60); Globulin 4.1 g/dL (2.2-4.2); Glucose 105 mg/dL (74-106); High Density Lipoprotein 82 mg/dL; Potassium 3.4 mmol/L (3.5-5.1); Protein, Total 7.7 g/dL (6.4-8.2); Sodium Level 136 mmol/L (136-145); Triglycerides 161 mg/dL; Very Low Density Lipoprotein 32 mg/dL (5-40)
== END ==
PROVIDERS: PCP Internal Medicine; Referring Provider Internal Medicine; Visit Provider Internal Medicine
DX: I10 Essential (primary) hypertension (principal)
CPT/HCPCS: 36415; 80053; 80061; 85025

== ENCOUNTER → 2022-08-21 | Outpatient (CLI) | payer MEDICARE, OTHER, SELFPAY ==
[2022-08-21 16:44] LABS: Absolute Neutrophil Count 2.1 X10^3/uL (2.0-7.7); Basophil# 0.03 X10^3/uL; Basophil% 0.7 % (0-1); Eosinophil# 0.14 X10^3/uL; Eosinophils% 3.1 % (0-5); Hematocrit 44.2 % (37-47); Hemoglobin 14.5 g/dL (12.0-15.0); Lymphocyte % 41.4 % (19-41); Mean Corp Hgb Conc 32.8 g/dL (32-36); Mean Corpuscular Hgb 31.1 pg (27.0-32.0); Mean Corpuscular Volume 94.8 fL (81-99); Mean Platelet Vol. 10.5 fl (6.2-12.0); Monocyte# 0.42 X10^3/uL; Monocyte% 9.2 % (0-10); NRBC Flagged by Analyzer 0 % (0-5); Neutrophil # 2.08 X10^3/uL (2.7-7.7); Neutrophil % 45.2 % (47-70); Platelet Count 241 K/mm3 (150-450); RBC Distribution Width CV 13.7 % (11.6-14.6); RBC Distribution Width SD 47.6 fl (35.1-43.9); Red Blood Count 4.66 M/mm3 (4.2-5.4); White Blood Count 4.6 K/mm3 (4.4-11.0)
[2022-08-21 17:19] LABS: AST(SGOT) 19 U/L (15-37); Alanine Aminotransfer ALT/SGPT 15 U/L (13-56); Albumin, Serum 3.9 g/dL (3.2-5.0); Alkaline Phosphatase 95 U/L (45-117); Anion Gap 10 (5-15); BUN 14 mg/dL (7-18); BUN/Creat Ratio 15.8 RATIO (10-20); Calcium,Total 9.5 mg/dL (8.5-10.1); Chloride 99 mmol/L (98-107); Cholesterol 245 mg/dL (200); Creatinine, Serum 0.89 mg/dL (0.55-1.02); EST Glomerular Filtration Rate 67 mL/min (>60); Est Glom Filt Rate - Afr Amer 81 mL/min (>60); Glucose 111 mg/dL (74-106); High Density Lipoprotein 46 mg/dL; Potassium 4.2 mmol/L (3.5-5.1); Protein, Total 7.9 g/dL (6.4-8.2); Sodium Level 137 mmol/L (136-145); Triglycerides 208 mg/dL; Very Low Density Lipoprotein 42 mg/dL (5-40)
== END | disposition home or self-care (01) ==
LOC: BIMLAB 15:39
PROVIDERS: PCP Internal Medicine; Referring Provider Internal Medicine; Visit Provider Internal Medicine
DX: I10 Essential (primary) hypertension (principal)
CPT/HCPCS: 36415; 80053; 80061; 85025

== ENCOUNTER → 2023-06-26 | Outpatient (CLI) | payer MEDICARE, SELFPAY ==
--- OUTSIDE RECORDS SUMMARY | 2023-06-26 12:36 | XMS RPT_ITS | CCD ---
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 Traffic Control Specialist Name Role Phone Unavailable Primary Care Provider Unavailabl e Sheets DO, Luz Sandoval Primary Care Provider MARY GODDARD Referring Unavailable SHEETSLUZ Primary Care Unavailable SHEETS, LUZ Sandoval Primary Care Unavailable VAZQUEZ CERVANTES Attending Unavailable ANA PAULA DEMPSEY Attending Unavailable SHEETS, LUZ Sandoval Primary Care Unavailable Allergies Allergy Classification Reported Allergen(s) Allergy Type Date of Onset Reaction(s) Facility (10 sources) Latex; Translations: [LATEX] Propensity to adverse reactions to drug 5 [place], [place] (4 sources) Penicillins; Translations: [PENICILLINS] Propensity to adverse reactions to drug 4 Hives, [place], [place] (6 sources) Penicillins Drug Allergy 4 Other: See Comments [facility] Medications Current Medications Medication Drug Class(es) Dates Sig (Normalized) Sig (Original) acetaminophen 325 mg oral tablet (1 source) Start: 12-07-2019 acetaminophen (TYLENOL) tablet 650 mg 200 actuat albuterol 0.09 mg/actuat metered dose inhaler (7 sources) beta2-Adrenergic Agonist Start: 12-10-2019 take 2 puff(s) by inhalation four times daily as needed for wheezing albuterol sulfate HFA (VENTOLIN HFA) 108 (90 Base) MCG/ACT inhaler Inhale 2 puffs into the lungs 4 times daily as needed for Wheezing 1 Inhaler 1 12/10/2019 Active Completed/Discontinued Medications Medication Drug Class(es) Dates Sig (Normalized) Sig (Original) amLODIPine 5 mg oral tablet (8 sources) Dihydropyridine Calcium Channel Emy Start: 12-09-2019 take 1 tablet by mouth once daily amLODIPine (NORVASC) 5 mg tablet Take 5 mg by mouth once daily. 0 12/11/2019 Active Problems Active Problems Problem Classification Problem Date Documented Da te Episodic/Chronic Alcohol-related disorders (13 sources) Alcohol withdrawal syndrome; Translations: [Alcohol dependence] Onset: 08-12-2016 04-03-2019 Chronic Anxiety disorders (1 source) Generalized anxiety disorder; Translations: [Generalized anxiety disorder] Chronic Blindness and vision defects (3 sources) Bilateral regular astigmatism; Translations: [Regular astigmatism, bilateral] 01-16-2023 Episodic Cataract (2 sources) Bilateral senile combined form cataracts of eyes; Translations: [Combined forms of age-related cataract, bilateral] 01-16-2023 Chronic Essential hypertension (2 sources) Hypertensive disorder; Translations: [Hypertension] 03-06-2015 Chronic Occlusion or stenosis of precerebral arteries (6 sources) Bilateral stenosis of carotid arteries; Translations: [Occlusion and stenosis of bilateral carotid arteries] Onset: 10-28-2019 10-28-2019 Chronic Other lower respiratory disease (1 source) Chronic cough; Translations: [Chronic cough] Onset: 08-21-2022 Episodic Residual codes; unclassified (2 sources) Tobacco user; Translations: [Tobacco abuse] 03-06-2015 Chronic Past or Other Problems Problem Classification Problem Date Documented Da te Episodic/Chronic Pancreatic disorders (not diabetes) (2 sources) Pancreatitis; Translations: [Pancreatitis] 03-09-2015 Episodic Residual codes; unclassified (6 sources) Tobacco user; Translations: [Tobacco use] Onset: 08-12-2016 08-12-2016 Episodic Results Test Name Value Interpretation Reference Range Facil ity Vital Signs Date Time Vital Sign Value Performing Clinician Kenya fernandez 12-10-2019 07:20-0400 Body Temperature 97.2 [degF] [facility] 12-10-2019 07:20-0400 BP Diastolic 76 mm[Hg] [facility] , [place] 12-10-2019 07:20-0400 BP Systolic 142 mm[Hg] [facility] , [place] 12-10-2019 07:20-0400 Pulse (Heart Rate) 69 /min [place], [place] 12-10-2019 07:20-0400 Pulse Oximetry 98 % [facility] , [place] 12-10-2019 07:20-0400 Respiratory Rate 18 /min [facility], [place] 12-07-2019 08:09-0400 Height 160 cm [facility] , [place] 12-07-2019 00:35-0400 BMI (Body Mass Index) 21.29 kg/m2 [facility], [place] 12-07-2019 00:35-0400 Body weight 54.52 kg [facility] , [place] 04-03-2019 18:54-0400 BP Diastolic 77 mm[Hg] [place] 04-03-2019 18:54-0400 BP Systolic 144 mm[Hg] Patrice [place], [place] 04-03-2019 18:54-0400 Pulse (Heart Rate) 99 /min [place], [place] 04-03-2019 18:54-0400 Pulse Oximetry 98 % [place], [place] 04-03-2019 18:54-0400 Respiratory Rate 18 /min [place] 04-03-2019 17:32-0400 Body Temperature 98.29 [degF] [facility], [place] Encounters Encounter Date Encounter Type Care Provider Facility Start: 05-06-2023 Telephone encounter Vazquez fritz MD Work Phone: [facility] Procedures Date Procedure Procedure Detail Performing Clinician Start: 01-29-2023 End: 01-29-2023 Computerized ophthalmic imaging retina Vazquez Cervantes MD Work Phone: Start: 01-29-2023 IOL BIOMETRY W/ IOL CALC OU (BOTH EYES) Vazquez Cervantes MD Work Phone: Start: 08-21-2022 Radiologic exam ches t 2 views [facility] Provider Start: 12-09-2019 Assay of magnesium Shre ebatsa ital Work Phone: Start: 12-09-2019 Assay of phosphorus inorganic Shreebatsa ital Work Phone: Start: 12-09-2019 Basic metabolic pane l calcium total Thangbaaung Dodson Work Phone: Start: 12-08-2019 Blood count complete auto&auto difrntl wbc Vijay Sparks Work Phone: Start: 12-07-2019 Blood count complete auto&auto difrntl wbc Vijay Sparks Work Phone: Start: 12-07-2019 Blood count complete automated Vijay Sparks Work Phone: Start: 04-03-2019 Drug screen class list a Patrice [place] Work Phone: Start: 04-03-2019 Assay of ethanol Patrice [place] Work Phone: Start: 04-03-2019 Basic metabolic pane l calcium total Patrice [place] Work Phone: Start: 04-03-2019 Blood count complete automated Patrice [place] Work Phone: Start: 04-03-2019 Hepatic function panel Patrice [place] Work Phone: Start: 08-31-2018 Follow-up visit Start: 08-19-2018 Follow-up visit Start: 06-23-2018 Follow-up visit Start: 02-20-2015 Lipid 1996 panel - S shruti or Plasma Vazquez Cervantes MD Work Phone: Plan of Treatment Date Care Activity Detail Author Start: 06-01-2023 DIABETES SCREEN DIABETES SCREEN [facility] Start: 06-01-2023 Diabetes Screening Diabetes Screening [facility] Start: 02-07-2023 Influenza vaccination [facility] Start: 06-09-2022 ADVANCE DIRECTIVE DISCUSSION ADVANCE DIRECTIVE DISCUSSION [facility] Start: 06-09-2022 DEPRESSION ASSESSMENT DEPRESSION ASSESSMENT [facility] Start: 02-07-2022 Influenza vaccination INFLUENZA (#1) [facility] Start: 02-21-2020 Lipid 1996 panel - Serum or Plasma Lipid Screening [facility] Start: 02-21-2020 LIPID SCREEN LIPID SCREEN [facility] Start: 02-08-2020 Influenza vaccination Flu vaccine (#1) [place] Start: 02-07-2019 Influenza vaccination Flu vaccine (#1) [place] Start: 2018 BONE DENSITY BONE DENSITY [facility] Start: 2018 Bone Density Screening Bone Density Screening [facility] Start: 2018 DEXA (modify frequency per FRAX score) DEXA (modify frequency per FRAX score) [place] Start: 2018 Pneumococcal 65+ years Vaccine (1 of 1 - PPSV23) Pneumococcal 65+ years Vaccine (1 of 1 - PPSV23) [place] Start: 2018 Pneumococcal Vaccine: 65+ (1 - PCV) Pneumococcal Vaccine: 65+ (1 - PCV) [facility] Start: 03-25-2016 COLORECTAL CANCER SCREENING COLORECTAL CANCER SCREENING [facility] Start: 03-25-2016 FECAL OCCULT BLOOD FECAL OCCULT BLOOD [facility] Start: 2013 RSV Vaccine (1 - 1-dose 60+ series) RSV Vaccine (1 - 1-dose 60+ series) [facility] Start: 2008 Screening for osteoporosis DEXA (modify frequency per FRAX score) [place] Start: 11-01-2003 Breast cancer screen Breast cancer screen [place] Start: 11-01-2003 Colon cancer screen colonoscopy Colon cancer screen colonoscopy [place] Start: 11-01-2003 Screening for malignant neoplasm of breast Breast cancer screen [place] Start: 11-01-2003 Screening for malignant neoplasm of colon Colon cancer screen colonoscopy [place] Start: 11-01-2003 Shingles Vaccine (1 of 2) Shingles Vaccine (1 of 2) [place] Start: 11-01-2003 SHINGRIX VACCINE (1 of 2) SHINGRIX VACCINE (1 of 2) [facility] Start: 1998 COLOGUARD (FIT-DNA) COLOGUARD (FIT-DNA) [facility] Start: 1998 Colonoscopy COLONOSCOPY [facility] Start: [address] COLONOGRAPHY [facility] Start: 1998 SIGMOIDOSCOPY SIGMOIDOSCOPY [facility] Start: 1993 Lipid panel Lipid screen [place] Start: 1993 Lipid screen Lipid [place] Start: 1993 Mammography [facility] Start: 1974 Cervical cancer screen Cervical cancer screen [place] Start: 1972 DTaP/Tdap/Td vaccine (1 - Tdap) DTaP/Tdap/Td vaccine (1 - Tdap) [place] Start: 1972 Urine microalbumin profile [facility] Start: 1968 HIV screen HIV screen [place] Start: 11-01-1959 PNEUMOCOCCAL: 65+ (1 - PCV) PNEUMOCOCCAL: 65+ (1 - PCV) [facility] Start: 05-03-1954 COVID-19 VACCINE (#1) COVID-19 VACCINE (#1) [facility] Start: 1953 Hepatitis C screen Hepatitis C screen [place], [place] Start: 1955 Hepatitis C screening Hepatitis C screen [place] End: 12-07-2019 C. difficile toxin Molecular C. difficile toxin Molecular Microbiology Routine 48 HRS for 48 Hours starting 12/07/2019 until 12/07/2019 [place] Payers Date Payer Category Payer Unknown [id number] 2020 Medicare [id number] 2020 Unknown [id number] 2018 Medicare MEDICARE MEDICAR E A AND B [id number] 2018-Present [phone] [address] [address] [place] [address] Medicare [id number] 2018 Medicare [id number] 2015 Unknown [employer] A[employer] xxxxxxxxxxx 2015-Present [phone] [address] [place] [address] xxxxxxxxxxx [id number] Social History Date Type Detail Facility Start: 03-09-2015 End: 01-16-2023 Tobacco smoking status NHIS Current every day smoker [facility] Start: 03-09-2015 End: 01-29-2023 Cigarettes smoked current (pack per day) - Reported [facility] Start: 03-09-2015 End: 01-29-2023 Alcohol intake No [facility] Start: 1955 Sex Assigned At Not on file [facility] Start: 12-08-2019 End: 01-29-2023 Alcohol intake Current drinker of alcohol (finding) [place], [place] History of tobacco use Cigarette Smoker [facility] Start: 09-21-2019 End: 01-16-2023 Tobacco use and exposure Smokeless tobacco non-user [facility] Start: 12-06-2019 History SDOH Alcohol Frequency 5 [facility] Start: 12-06-2019 History SDOH Alcohol Std Drinks 2 [facility] Start: 12-06-2019 History SDOH Alcohol Binge 1 [facility] Start: 09-21-2019 Alcohol Comment daily [facility] How often to you hav e a drink containing alcohol? 4 or more times a week [facility] How many standard dr inks containing alcohol do you have on a typical day? 3 or 4 [facility] How often do you hav e 6 or more drinks on 1 occasion? Never [facility] Adult Depression Screening Assessment 0 [facility] Note 05-06-2023 Telephone Encounter - Maki Keith - 05/06/2023 10:52 AM EST Note Date & Type Note Facility 05-06-2023 Miscellaneous Notes Formattin g of this note might be different from the original. Received voicemail from patient yesterday requesting a call back. I called patient back and left her a voicemail to call me back at her convenience, . documented in this encounter [facility] Note 04-28-2023 Telephone Encounter - Francine Guardado RN - 04/28/2023 2:57 PM EST Note Date & Type Note Facility 04-28-2023 Miscellaneous Notes Formattin g of this note might be different from the original. Pended pre-operative drops to Dr. Cervantes to approve. Francine Guardado RN April 28, 2023 2:58 PM documented in this encounter [facility] Note 01-31-2023 Telephone Encounter - Maki Keith - 01/31/2023 11:35 AM EDT Note Date & Type Note Facility 01-31-2023 Miscellaneous Notes Formattin g of this note might be different from the original. Left voicemail for patient to call me back at [phone] to schedule cataract surgery with Dr. Vazquez Cervantes. documented in this encounter [facility] Progress note 01-29-2023 Note Date & Type Note Facility 01-29-2023 Note HNO ID: [id number] Author: Vazquez Cervantes MD Service: ? Author Type: Physician Type: Progress Notes Filed: 01/29/2023 12:12 PM Note Text: Assessment and Plan 1. Combined forms of age-related cataract of both eyes Cataract Presurgical Documentation Cataract: Right eye (OD) Current Visual Acuity Right Eye Distance CC 20/150 Left Eye Distance CC 20/80 Best Corrected Vision Right Eye 20/30-1 Best Corrected Vision Left Eye 20/40 Glare Testing: Right Eye Off 20/40 Right Eye Low 20/50 Right Eye Medium 20/60 Right Eye High 20/70 Left Eye Off 20/40 Left Eye Low 20/40 Left Eye Medium 20/50 Left Eye High 20/50 Visual Function: Francisca Thorpe states that the decline in vision from the cataract impedes her abilities as listed in the HPI, as well as other activities of daily living. Franciscaallison Thorpe has confirmed that she is no longer able to function adequately on a day-to-day basis because of her current visual condition. Further, it is my medical opinion that the cataract is the primary cause, or at least a significantly contributory cause of her visual dysfunction. With uncomplicated cataract surgery and lens implantation, it is my expectation that her visual function and quality of life will improve, significantly. The risks, benefits, alternatives, personnel and complications of cataract surgery with lens implantation were discussed with Francisca Thorpe in detail. she appeared to understand and asked that I proceed with plans for surgery. 2. Refractive error -astigmatism left eye > right eye Plan: Cataract: Right eye (OD) Aim -0.25 SA60WF/ACU0T0 power +17.0 Flomax N Diabetes N Glaucoma N Astigmatism N - astigmatism left eye > right eye - not interested in toric intraocular lens Refractive surgery N Fuchs N Trypan blue N Malyugin ring N - possible Other N/A I have confirmed and edited as necessary the relevant ophthalmic history, ROS, and the neuro exam findings as obtained by others. I have seen and examined Francisca Thorpe. I have discussed the case and the management of this patient's care with the Resident/Fellow, if applicable. I also have reviewed and agree with the assessment and plan as stated above and agree with all of its relevant components. Vazquez Cervantes MD January 29, 2023 11:56 AM [facility] Instructions 01-29-2023 Patient Instructions Note Date & Type Note Facility 01-29-2023 Instructions Vazquez Cervantes MD - 01/29/2023 11:59 AM EDT Images from the original note were not included. Pre-Op Instructions for patients of Dr. Vazquez Cervantes 2 days prior to surgery start: Prednisolone acetate-use one drop four times a day in operative eye Moxifloxacin/Polytrim- use one drop four times each day in operative eye Ketorolac - use one drop four times each day in operative eye You may use the drops in any order, but close your eye for 5 minutes after each drop. Continue to use any previous eye drops unless instructed otherwise. Day of Surgery: Do not eat or drink anything 8 hours prior to procedure time. Take all of your morning medication with only enough water to swallow them unless instructed otherwise by Dr. Cervantes or Primary Care physician. Get one drop of Moxifloxacin and Ketorolac in the operative eye prior to arriving at the surgery center. After your surgery: Do not remove your eye shield at home, except to instill your medication eye drops. Your eye shield will be removed in the office the following day. No heavy lifting or bending from the waist. Limit your activity. Avoid bumping or rubbing the operative eye. You will be given instructions in the surgery center about starting the three eyedrops after surgery. Call the office if you have any questions or concerns at , option 1. If the call is after business hours you will automatically connect with the answering service and they will contact your doctor as needed documented in this encounter [facility] History of Present illness Narrative 01-29-2023 Vazquez Cervantes MD - 01/29/2023 11:56 AM EDT Note Date & Type Note Facility 01-29-2023 History of Presen t illness Narrative Assessment and Plan 1. Combined forms of age-related cataract of both eyes Cataract Presurgical Documentation Cataract: Right eye (OD) Current Visual Acuity Right Eye Distance CC 20/150 Left Eye Distance CC 20/80 Best Corrected Vision Right Eye 20/30-1 Best Corrected Vision Left Eye 20/40 Glare Testing: Right Eye Off 20/40 Right Eye Low 20/50 Right Eye Medium 20/60 Right Eye High 20/70 Left Eye Off 20/40 Left Eye Low 20/40 Left Eye Medium 20/50 Left Eye High 20/50 Visual Function: Francisca Thorpe states that the decline in vision from the cataract impedes her abilities as listed in the HPI, as well as other activities of daily living. Francisca Thorpe has confirmed that she is no longer able to function adequately on a day-to-day basis because of her current visual condition. Further, it is my medical opinion that the cataract is the primary cause, or at least a significantly contributory cause of her visual dysfunction. With uncomplicated cataract surgery and lens implantation, it is my expectation that her visual function and quality of life will improve, significantly. The risks, benefits, alternatives, personnel and complications of cataract surgery with lens implantation were discussed with Francisca Thorpe in detail. she appeared to understand and asked that I proceed with plans for surgery. 2. Refractive error -astigmatism left eye > right eye Plan: Cataract: Right eye (OD) Aim -0.25 SA60WF/ACU0T0 power +17.0 Flomax N Diabetes N Glaucoma N Astigmatism N - astigmatism left eye > right eye - not interested in toric intraocular lens Refractive surgery N Fuchs N Trypan blue N Malyugin ring N - possible Other N/A I have confirmed and edited as necessary the relevant ophthalmic history, ROS, and the neuro exam findings as obtained by others. I have seen and examined Francisca Thorpe. I have discussed the case and the management of this patient's care with the Resident/Fellow, if applicable. I also have reviewed and agree with the assessment and plan as stated above and agree with all of its relevant components. Vazquez Cervantes MD January 29, 2023 11:56 AM documented in this encounter [facility] Progress note 01-16-2023 Note Date & Type Note Facility 01-16-2023 Note HNO ID: [id number] Author: Ana Paula Dempsey OD Service: ? Author Type: TALENT ACQUISITION CONSULTANT Type: Progress Notes Filed: 01/16/2023 10:37 AM Note Text: 1. Combined forms of age-related cataract of both eyes +visually significant cataract with myopic shift Finalized spec rx- recommended patient updated specs before driving and sending in form to [employer] 2. Regular astigmatism of both eyes 3. Myopia, bilateral Finalized spec rx Follow-up with Dr. Cervantes for cat walter Dempsey, CONRADO January 16, 2023 10:36 AM [facility] History of Present illness Narrative 01-16-2023 Ana Paula Dempsey OD - 01/16/2023 10:36 AM EDT Note Date & Type Note Facility 01-16-2023 History of Presen t illness Narrative 1. Combined forms of age-related cataract of both eyes +visually significant cataract with myopic shift Finalized spec rx- recommended patient updated specs before driving and sending in form to [employer] 2. Regular astigmatism of both eyes 3. Myopia, bilateral Finalized spec rx Follow-up with Dr. Cervantes for cat walter Dempsey, OD January 16, 2023 10:36 AM documented in this encounter [facility] Evaluation note Note Date & Type Note Facility documented in this encounter [facility] Evaluation note Note Date & Type Note Facility documented in this encounter [facility] Summary Purpose Family History No Family History Records FoundNo Family History Records FoundNo Family History Records FoundNo Family History Records FoundNo Family History Records FoundNo Family History Records Found Advance Directives No Advanced Directives Records FoundDocuments on File Type Date Recorded 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 Central assessment 8 AM4 PM for adults. [address] [phone] [facility]. Appointment only for outpatient treatment services M, W, Th 9AM-9PM, T F 9AM-530PM [address] [facility] [phone] [employer] [facility] M-F 10AM-2PM [phone] or [phone] Alcoholics Anonymous [address] [facility] M-F 9AM-5 PM, Sa 9AM-1 PM [phone] [facility] Outpatient/Inpatient/Detox for adults [address] [facility] [phone] Adolescents Treatment/Detox [address] [facility] [phone] [facility] Alcohol and drug counseling and groups. [address] [place] [address] [facility] Drug, alcohol, gambling, and mental health treatment. M-F 8AM-4:30PM [address] [phone], ext [phone] Narcotics Anonymous 24 hour Hotline 0-430-ONU-HOPE or [facility] Sober living housing, counseling, vocational education, job referral, recovery coaching [address] [facility] [phone] [facility] Alcohol and Drug Counseling Call for treatment appointment and prevention [address] [facility] [phone] * Attachments The following attachments cannot be sent through Care Everywhere. * Alcohol Detoxification and Withdrawal (Icelandic) documented in this encounter* Discharge Instr - Activity* Ho Dodson MD - 12/10/2019 12:23 PM EDT Up as tolerated. * Discharge Instr - DietHo Santoro MD - 12/10/2019 12:23 PM EDT ? Good nutrition is important when healing from an illness, injury, or surgery. Follow any nutrition recommendations given to you during your hospital stay. ? If you were given an oral nutrition supplement while in the hospital, continue to take this supplement at home. You can take it with meals, in-between meals, and/or before bedtime. These supplements can be purchased at most local grocery stores, pharmacies, and chain [employer]-stores. ? If you have any questions about your diet or nutrition, call the hospital and ask for the dietitian. Diet general. * Discharge Instr - RANDALHo Santoro MD - 12/10/2019 12:23 PM EDT Continuity of Care Form Patient Name: Francisca Thorpe : 1955 Admit date: 12/07/2019 Discharge date: Code Status Order: Full Code Advance Directives: Advance Care Flowsheet Documentation Date/Time Healthcare Directive Type of Healthcare Directive Copy in Chart Healthcare Agent Appointed Healthcare Agent's Name Healthcare Agent's Phone Number 12/07/19 0046 No, patient does not have an advance directive for healthcare treatment -- -- -- -- -- Admitting Physician: Vijay Sparks MD PCP: No primary care provider on file. Discharging Nurse: Discharging Hospital Unit/Room#: 1504/181748 Discharging Unit Phone Number: Emergency Contact: Extended Emergency Contact Information Primary Emergency Contact: Jose Black [facility] Relation: Child Past Surgical History: History reviewed. No pertinent surgical history. Immunization History: There is no immunization history on file for this patient. Active Problems: Patient Active Problem List Diagnosis Code Hypertension I10 Tobacco abuse Z72.0 Pancreatitis K85.90 Alcohol dependence with uncomplicated withdrawal (HCC) F10.230 Alcohol withdrawal, with unspecified complication ([facility]) F10.239 Isolation/Infection: Isolation No Isolation Patient Infection Status Infection Onset Added Last Indicated Last Indicated By Review Planned Expiration Resolved Resolved By None active Resolved C-diff Rule Out 12/07/19 12/07/19 12/07/19 C. difficile toxin Molecular (Ordered) 12/10/19 PatriciaJ. Bj RN 12/07/19 - R/O C difficile disease; PCR pending; Maintain Enhanced Contact Precautions; Post & follow instructions on Yellow Sign, including bleach-based environmental disinfection & terminal room clean with Hydrogen peroxide until this PCR is negative or cancelled 12/10/19 - order timed out Nurse Assessment: Last Vital Signs: BP (!) 142/76 Pulse 69 Temp 97.2 F (36.2 C) (Temporal) Resp 18 Ht 5' 3 (1.6 m) Wt 120 lb 3.2 oz (54.5 kg) SpO2 98% BMI 21.29 kg/m Last documented pain score (0-10 scale): Pain Level: 0 Last Weight: Wt Readings from Last 1 Encounters: 12/07/19 120 lb 3.2 oz (54.5 kg) Mental Status: {IP PT MENTAL STATUS:} IV Access: { RANDAL IV ACCESS:585171544} Nursing Mobility/ADLs: Walking {CHP DME ADLs:442581641} Transfer {CHP DME ADLs:832206178} Bathing {CHP DME ADLs:320901489} Dressing {CHP DME ADLs:834246027} Toileting {CHP DME ADLs:313811761} Feeding {CHP DME ADLs:575113634} Hoop Bender Tank {CHP DME ADLs:776957792} Med Delivery { RANDAL MED Delivery:263350130} Wound Care Documentation and Therapy: Elimination: Continence: Bowel: {YES / NO:} Bladder: {YES / NO:} Urinary Catheter: {Urinary Catheter:117889622} Colostomy/Ileostomy/Ileal Conduit: {YES / NO:} Date of Last BM: Intake/Output Summary (Last 24 hours) at 12/10/2019 1223 Last data filed at 12/10/2019 0720 Gross per 24 hour Intake 480 ml Output Net 480 ml I/O last 3 completed shifts: In: 480 [P.O.:480] Out: - Safety Concerns: { RANDAL Safety Concerns:213253218} Impairments/Disabilities: { RANDAL Impairments/Disabilities:656940060} Nutrition Therapy: Current Nutrition Therapy: { RANDAL Diet List:064458400} Routes of Feeding: {CHP DME Other Feedings:828188701} Liquids: {Director Social liquid thickness:91523} Daily Fluid Restriction: {CHP DME Yes amt example:510307998} Last Modified Barium Swallow with Video (Video Swallowing Test): {Done Not Done Date:} Treatments at the Time of Hospital Discharge: Respiratory Treatments: Oxygen Therapy: {Therapy; copd oxygen:23562} Ventilator: { CC Vent List:844094441} Rehab Therapies: {THERAPEUTIC INTERVENTION:0033672095} Weight Bearing Status/Restrictions: {[facility] Weight Bearin} Other Medical Equipment (for information only, NOT a DME order): {EQUIPMENT:038476984} Other Treatments: Patient's personal belongings (please select all that are sent with patient): {P DME Belongings:635691442} RN SIGNATURE: {Esignature:743569858} CASE MANAGEMENT/SOCIAL WORK SECTION Inpatient Status Date: Readmission Risk Assessment Score: Readmission Risk Risk of Unplanned Readmission: 8 Discharging to Facility/ Agency Name: Address: Phone: Fax: Dialysis Facility (if applicable) Name: Address: Dialysis Schedule: Phone: Fax: Negative Notcher/Sleeve Tailor signature: {Esignature:141172290} PHYSICIAN SECTION Prognosis: {Prognosis:6649247115} Condition at Discharge: { Patient Condition:189944616} Rehab Potential (if transferring to Rehab): {Prognosis:9720583959} Recommended Labs or Other Treatments After Discharge: Physician Certification: I certify the above information and transfer of Francisca Thorpe is necessary for the continuing treatment of the diagnosis listed and that she requires {Admit to Appropriate Level of Care:72802} for {GREATER/LESS:184370178} 30 days. Update Admission H&P: {CHP DME Changes in HandP:831779440} PHYSICIAN SIGNATURE: {Esignature:167353657} * Additional Instructions* Ho Dodson MD - 12/10/2019 COPD SIGNS AND SYMPTOMS GREEN ZONE: All Clear- Your Symptoms Are Under Control Able to do usual activities Usual amounts of cough and phlegm/mucus No chest pain Your usual medications are controlling your symptoms This Means You Should: Continue taking your medications as prescribed Continue activity as tolerated Keep all doctor appointments Avoid smoking and exposure to strong chemical odors YELLOW ZONE: Caution as Your Health may be Worsening Increased cough and/or sputum production Increased shortness of breath with usual activity Increase in the amount of quick relief medications needed Increased fatigue or restlessness Poor sleep and symptoms waking you up Uneasy feeling or that something is wrong This Means You Should: Call your doctor for further instructions RED ZONE: Medical Alert Severe or unrelieved shortness of breath at rest Unrelieved chest pain Not able to do any activity because of breathing Not able to sleep because of breathing Confusion or you can't think clearly This Means You Should Call 911 Immediately documented in this encounter Assessments Diagnosis Alcohol withdrawal syndrome without complication (HCC)- Primary Alcohol dependence, uncomplicated (HCC) Diagnosis Generalized anxiety disorder Alcohol withdrawal, with unspecified complication (HCC) Alcohol dependence with uncomplicated withdrawal (HCC) Other and unspecified alcohol dependence, unspecified drinking behavior History of Present Illness * Erma Wagoner OT - 12/10/2019 11:56 AM EDT Occupational Therapy Note Received OT eval and treat orders. Upon entry to room pt was standing by window and ambulated from window to opposite side of bed and sat on EOB with no LOB. Spoke with pt about OT needs and pt reports feeling as though she is functioning at her baseline with ADL's. No skilled OT needs at this time, will discharge from OT services. Please re-consult if change in status. Erma Wagoner OTR/L * Bre Mc APRN - VIDYA - 12/09/2019 12:06 PM EDT Addiction Consult Progress Note December Following to assess status of Alcohol Withdrawal General: When seen and assessed: Sitting up attending to IPhone Alert and Fully oriented; coherent; Euthymic mood with congruent affect; Eye contact maintained. Withdrawal Assessment: SUBJECTIVE: Reports concern over an unsteady gait; Reports severe cravings for cigarettes: if I could just have a cigarette I could think clearly OBJECTIVE: No tremors, No diaphoresis, Phenobarb has been tapering HAS RECEIVED A TOTAL OF 939.6mg since admission One prn ativan 0.5mg dose in past 24 hrs. VITALS: P 83 T 97.3 137/74 R 18 ADDICTION: Insight into addiction is fair; She says cravings for cigarettes exceeds any for alcohol; Acknowledges the severity of the nicotine addiction. Has had formal treatment for alcoholism last year, yet has not been able to do a daily Program Works in [facility] [employer] and is familiar with the [facility] which we will refer her to EXAM: Neuro: NO Tremors; NO fidgeting; NO restlessness; NO agitation; NO twitching Gait: Unstable: PT ASSESSMENT RECOMMENDS SOME TIME IN A FACILITY WITH DAILY PT Skin: NO diaphoresis; NO abnormalities Eyes: NO abnormalities ORAL/Nasal Mucosa: NO rhinnorrhea; NO abnormalities Cardiac: Radial Pulses Equal; NO tachy/maria del carmen cardia Respiratory: NO abnormalities; NO labored Breathing; No COUGH Cognitions: Fully oriented & Coherent; No evidence of delusions Muscles/Skelatal: DIMINISHED STRENGTH PLAN: The 3 areas considered from Addiction Standpoint: 1) Withdrawal: She's not showing any current signs of alcohol withdrawal; Phenobarbital will be tapered further in dose to end after last dose tonite. Thiamine to continue at 100mg 3X/DAY PLEASE PROVIDE SCRIPT UPON DISCHARGE Nicotine Lozenges (4mg) along with mechanical staws discussed 2) Unsteady Gait: Given her need for intense physical rehab and her desire to gain functional ability, transition to a Rehab Facility is a priority rather than Transition to [address]; 3) Alcoholism: She is well versed on treatment protocals having been thru [facility] last year. She is receptive to scheduling elvin[facility] at [facility]; provided written information. We wish her all the best and will leave remainder of care to primary service and Physical Therapy. We will sign off but PLEASE reconsult if further help is needed BRE SAAB DNP PULP SCREEN OPERATOR-DELIVERY CLERK [facility] * Ho Dodson MD - 12/09/2019 10:22 AM EDT Hospitalist Progress Note 12/09/2019 10:22 AM [phone]: Please page me for patient care issues. [phone]: Please page IMS night Hospitalist for any issues. Subjective: Admit Date: 12/07/2019 PCP: No primary care provider on file. Room#: 1504/039832 I was wearing N95 mask throughout the patient encounter. Interval History: Complains of anxiety, wants to go out and smoke. Generalized weakness+. Tolerating po. No cp/sob. No n/v. DIET GENERAL; Dietary Nutrition Supplements: Standard High Calorie Oral Supplement Patient Vitals for the past 96 hrs (Last 3 readings): Weight 12/07/19 0035 120 lb 3.2 oz (54.5 kg) Medications: amLODIPine 5 mg Oral Daily PHENobarbital 64.8 mg Oral Q6H sodium chloride flush 10 mL Intravenous 2 times per day multivitamin 1 tablet Oral Daily nicotine 1 patch Transdermal Daily thiamine 100 mg Oral TID folic acid 1 mg Oral Daily mometasone-formoterol 2 puff Inhalation BID enoxaparin 40 mg Subcutaneous Daily pantoprazole 40 mg Oral QAM AC LABS: CBC: Recent Labs 12/07/19135 WBC 6.3 RBC 3.97 HGB 13.9 HCT 39.7 MCV 100.0* RDW 16.1* PLT 192 BMP: Recent Labs 12/07/1913512/08/19 0019 12/09/19 0240 NA 132* 133* 133* K 4.2 3.9 3.9 CL 98 98 100 CO2 25 27 26 BUN 10 11 11 CREATININE 0.42* 0.64 0.58 GLUCOSE 80 164* 94 CALCIUM 9.3 9.7 9.0 ANIONGAP 9 7 8 LIVER PROFILE: Recent Labs 12/07/1913512/08/19 0019 AST 118* 95* ALT 80* 66* BILITOT 1.0 1.0 ALKPHOS 83 85 LABALBU 4.5 4.6 PROT 7.5 7.8 PT/INR: No results for input(s): PROTIME, INR in the last 72 hours. CARDIAC ENZYMES: No results for input(s): TROPONINI in the last 72 hours. Procalcitonin: No results found for: PROCAL Objective: Vitals: BP (!) 153/74 Pulse 63 Temp 98.1 F (36.7 C) (Temporal) Resp 18 Ht 5' 3 (1.6 m) Wt 120 lb 3.2 oz (54.5 kg) SpO2 95% BMI 21.29 kg/m Pulse Ox: SpO2 Av % Min: 95 % Max: 99 % Supplemental O2: General appearance: Awake, no acute distress noted. Skin: No acute rashes or ecchymoses noted. Head: Normocephalic,atruaumatic. Eyes: PERRL, no pallor or icterus noted. ENT: External ears normal. Throat is moist. Neck: Neck supple. No JVD, no lymphadenopathy noted. No thyromegaly. Trachea is midline. Lungs: Respiratory effort is normal. wheezes are improving. Heart: S1 and S2 audible. Regular rate and rhythm. No gallop, murmur, or rub noted. Abdomen: Abdomen soft, non-tender. BS present. No mass, no organomegaly noted. Extremities: No edema. Peripheral pulses are palpable. Neuro: She does have tremors of hands - improving. Cranial nerves II to XII appear intact. Motor: No focal neurological deficit noted. Assessment Active Problems: Alcohol withdrawal, with unspecified complication (HCC) Resolved Problems: * No resolved hospital problems. * Hyponatremia - improving Macrocytosis - likely due to alcohol Elevated transaminases - likely due to alcohol abuse Anxiety/insomnia Bilateral wheezes - suspect COPD Tobacco abuse Plan Phenobarb tapering. Continue nicotine patch. Duoneb prn. PT/OT recommending IP based therapy. No need for STH per ADM. DVT prophylaxis - SQ lovenox. Advance Directive: Full Code Discharge planning: Will see how she does with PT/OT, may need inpatient rehab. * Janice Sharma, PT - 12/08/2019 2:57 PM EDT Physical Therapy Facility/Department: [facility] Initial Assessment NAME: Francisca Thorpe : 1955 Date of Service: 12/08/2019 *N95 mask, goggles and gloves worn by this PT throughout pt encounter* Discharge Recommendations: IP Rehab Assessment Body structures, Functions, Activity limitations: Decreased functional mobility ;Decreased cognition;Decreased safe awareness;Decreased balance;Decreased coordination Assessment: pt w/ above deficits. Groggy, confused. Amb w/ uncoordinated gait; improves w/ FWW. High fall risk. Plans for transfer to [facility] detox. Will need new therapy orders and 24 hr assist for safety. At this time rec rehab. Treatment Diagnosis: etoh Prognosis: Fair Decision Making: Low Complexity PT Education: Goals;PT Role;General Safety;Plan of Care;Equipment REQUIRES PT FOLLOW UP: Yes Activity Tolerance Activity Tolerance: Patient limited by fatigue Patient Diagnosis(es): There were no encounter diagnoses. has a past medical history of Hypertension, Pancreatitis, and Tobacco abuse. has no past surgical history on file. Restrictions Restrictions/Precautions Restrictions/Precautions: Fall Risk Vision/Hearing Subjective General Chart Reviewed: Yes Patient assessed for rehabilitation services?: Yes Additional Pertinent Hx: etoh Family / Caregiver Present: No Diagnosis: etoh Follows Commands: Within Functional Limits Subjective Subjective: pt in bed, groggly initially. Pain Screening Patient Currently in Pain: No Vital Signs Patient Currently in Pain: No Orientation Orientation Overall Orientation Status: Impaired Orientation Level: Oriented to time;Oriented to person;Disoriented to place Social/Functional History Social/Functional History Lives With: Alone Type of Home: Apartment(just moved to [facility]) Home Layout: One level Home Access: Stairs to enter without rails Entrance Stairs - Number of Steps: 6 Entrance Stairs - Rails: None Bathroom Shower/Tub: Tub/Shower unit Bathroom Toilet: Standard Bathroom Equipment: (na) Bathroom Accessibility: Walker accessible Home Equipment: (na) Receives Help From: Family ADL Assistance: Independent Homemaking Assistance: Independent Homemaking Responsibilities: Yes Ambulation Assistance: Independent Transfer Assistance: Independent Active Cold Press Loader: Yes Mode of Transportation: Car Education: na Occupation: Unemployed(currently on unemployment) Type of occupation: [email or web address] Leisure & Hobbies: na IADL Comments: mostly ind Additional Comments: has an apt in [place] also when she was working there Cognition Cognition Overall Cognitive Status: Exceptions Arousal/Alertness: Appropriate responses to stimuli Following Commands: Follows one step commands with increased time Attention Span: Attends with cues to redirect Memory: Decreased recall of biographical Information Safety Judgement: Decreased awareness of need for assistance;Decreased awareness of need for safety Insights: Decreased awareness of deficits Initiation: Requires cues for some Sequencing: Requires cues for some Objective AROM RLE (degrees) RLE AROM: WFL AROM LLE (degrees) LLE AROM : WFL Strength RLE Strength RLE: WFL Strength LLE Strength LLE: WFL Sensation Overall Sensation Status: WFL Bed mobility Supine to Sit: Supervision Transfers Sit to Stand: Minimal Assistance Stand to sit: Minimal Assistance Comment: x3 trials Ambulation Ambulation?: Yes More Ambulation?: Yes Ambulation 1 Surface: level tile Device: No Device Assistance: Minimal assistance;Moderate assistance Gait Deviations: Slow Mary;Decreased step length;Staggers;Decreased step height Distance: 15' Ambulation 2 Surface - 2: level tile Device 2: Rolling Walker Assistance 2: Minimal assistance Gait Deviations: Slow Mary;Decreased step length;Decreased step height Distance: 60' x2 Stairs/Curb Stairs?: No Plan Plan Times per week: 5x Plan weeks: 2 Current Treatment Recommendations: Balance Training, Functional Mobility Training, Transfer Training, Safety Education & Training, Equipment Evaluation, Education, & procurement, Gait Training, Stair training Safety Devices Type of devices: All fall risk precautions in place, Left in chair, Call light within reach, Chair alarm in place, Nurse notified, Gait belt, Patient at risk for falls G-Code OutComes Score AM-PAC Score AM-PAC Inpatient Mobility Raw Score : 13 (12/08/191456) AM-PAC Inpatient T-Scale Score : 36.74 (12/08/191456) Mobility Inpatient CMS 0-100% Score: 64.91 (12/08/191456) Mobility Inpatient [facility] G-Code Modifier : CL (12/08/191456) Goals Short term goals Time Frame for Short term goals: 2 wks Short term goal 1: bed mobility mod indep Short term goal 2: transfers mod indep Short term goal 3: amb 150' w/ least restrictive device mod indep Short term goal 4: negotiate 6 stairs w/ rail supv Patient Goals Patient goals : home Therapy Time Individual Concurrent Group Co-treatment Time In 1320 Time Out 1339 Minutes 19 Patient s Physical Therapy Plan of Care supervision is transferred to [facility] Rehab Department Physical Therapist. Goals and/or treatment plan was established in collaboration with patient/family/other representatives. Janice Sharma PT * Ho Dodson MD - 12/08/2019 10:24 AM EDT Hospitalist Progress Note 12/08/2019 10:24 AM [phone]: Please page me for patient care issues. [phone]: Please page IMS night Hospitalist for any issues. Subjective: Admit Date: 12/07/2019 PCP: No primary care provider on file. Room#: 1504/254852 I was wearing N95 mask throughout the patient encounter. Interval History: Shakiness is little better. Complains of generalized weakness, feeling wobbly espwhen walking. Tolerating po. No cp/sob. No n/v. DIET GENERAL; Dietary Nutrition Supplements: Standard High Calorie Oral Supplement Patient Vitals for the past 96 hrs (Last 3 readings): Weight 12/07/19 0035 120 lb 3.2 oz (54.5 kg) Medications: sodium chloride 50 mL/hr at 12/07/19 0137 sodium chloride flush 10 mL Intravenous 2 times per day multivitamin 1 tablet Oral Daily nicotine 1 patch Transdermal Daily PHENobarbital 97.2 mg Oral Q4H thiamine 100 mg Oral TID folic acid 1 mg Oral Daily mometasone-formoterol 2 puff Inhalation BID enoxaparin 40 mg Subcutaneous Daily pantoprazole 40 mg Oral QAM AC LABS: CBC: Recent Labs 12/07/19 0136 WBC 6.3 RBC 3.97 HGB 13.9 HCT 39.7 MCV 100.0* RDW 16.1* PLT 192 BMP: Recent Labs 12/07/19 0136 12/08/19 0019 NA 132* 133* K 4.2 3.9 CL 98 98 CO2 25 27 BUN 10 11 CREATININE 0.42* 0.64 GLUCOSE 80 164* CALCIUM 9.3 9.7 ANIONGAP 9 7 LIVER PROFILE: Recent Labs 12/07/19 0136 12/08/19 0019 AST 118* 95* ALT 80* 66* BILITOT 1.0 1.0 ALKPHOS 83 85 LABALBU 4.5 4.6 PROT 7.5 7.8 PT/INR: No results for input(s): PROTIME, INR in the last 72 hours. CARDIAC ENZYMES: No results for input(s): TROPONINI in the last 72 hours. Procalcitonin: No results found for: PROCAL Objective: Vitals: BP (!) 169/86 Pulse 75 Temp 97.3 F (36.3 C) (Temporal) Resp 18 Ht 5' 3 (1.6 m) Wt 120 lb 3.2 oz (54.5 kg) SpO2 98% BMI 21.29 kg/m Pulse Ox: SpO2 Av % Min: 96 % Max: 98 % Supplemental O2: General appearance: Awake, no acute distress noted. Skin: No acute rashes or ecchymoses noted. Head: Normocephalic,atruaumatic. Eyes: PERRL, no pallor or icterus noted. ENT: External ears normal. Throat is moist. Neck: Neck supple. No JVD, no lymphadenopathy noted. No thyromegaly. Trachea is midline. Lungs: Respiratory effort is normal. wheezes are improving. Heart: S1 and S2 audible. Regular rate and rhythm. No gallop, murmur, or rub noted. Abdomen: Abdomen soft, non-tender. BS present. No mass, no organomegaly noted. Extremities: No edema. Peripheral pulses are palpable. Neuro: She does have tremors of hands - improving. Cranial nerves II to XII appear intact. Motor: No focal neurological deficit noted. Assessment Active Problems: Alcohol withdrawal, with unspecified complication (HCC) Resolved Problems: * No resolved hospital problems. * Hyponatremia - improving Macrocytosis - likely due to alcohol Elevated transaminases - likely due to alcohol abuse Anxiety/insomnia Bilateral wheezes - suspect COPD Tobacco abuse Plan Appreciate ADM input. Continue Phenobarb. CIWA protocol. Stop iv fluid. Tolerating po. Continue nicotine patch. Duoneb prn. Will ask PT/OT eval. Monitor electrolytes. Elevated transaminases likely from alcohol, improving. DVT prophylaxis - SQ lovenox. Advance Directive: Full Code Discharge planning: TBD * Bre Mc, BRANDYN Antunez CNP - 12/08/2019 9:58 AM EDT Sunday December 08, 2019 Chart reviewed; Discussed status with attending RN who reports that Francisca is fatigued due to poor sleep; received prn doses of 0.5mg ativan last priti; she's wanting to sleep this am; RN reports no overt tremors. VS: 97.3 P 75 R 18 169/86 She has been receiving 97.2mg Phenobarb q 4 hrs since yesterday, along with the 2 prn doses of ativan last priti. In talking via phone with Francisca, she sounded tired but was alert, coherent, lucid and fully oriented. She recalled our time together yesterday. She says that she does not feel shaky but unsteady on her feet; denies recent falls; Asks about physical therapy and will it be covered by [facility]? (has Medicare with [facility] supplemental). I discussed possible transfer to our [facility] addiction unit; I explained the unit and regulations; explained how she would benefit, especially the counseling sessions and Social Work planning for followup. She is hesitant: can I think about it? Will there be therapy there, I have a time limit in sellingmy house She does seem eager for discharge but receptive to how she needs help at this time. EXAM: No face to face interaction; thus exam is very limited; She does have an audible cough; BP slightly elevated; Concern voiced re: ambulation PLAN: At this time, phenobarb will be tapered to 64.8mg q 4 along with prn ativan Thiamine tid Will ask PT to assess her physical needs I've asked Dr Dalal, attending at [facility] to hold bed for her for possible transfer tomorrow (If she agrees) ) If she does agree, it will be a TRANSFER, not a discharge as [facility] ([phone]) is a medical (not psy) unit BRE SAAB DNP, APRN-DELIVERY CLERK [facility] ([id number]) * Isabel Bryant, RD, LD - 12/07/2019 8:19 AM EDT Nutrition Assessment Type and Reason for Visit: Initial, Positive Nutrition Screen(nursing referral: poor appetite) Nutrition Recommendations: 1. Continue with general diet. 2. Per MNT protocol will send chocolate Ensure Enlive at breakfast daily (8 oz provides 350 kcals, 20 gm protein). 3. Please record % of meals and oral nutrition supplement consumed daily. 4. Monitor weight, labs, fluid, and nutritional status. RD will follow up weekly. Nutrition Assessment: Patient reports appetite decreased over the past couple of days due to drinking. She is unsure amount that she drinks, but says around 3 glasses of vodka and juice/day. She denies nausea or vomiting. Normally, pt consumes 2 meals per day and does not restrict her diet. She reports that her weights vary between 120-130 lbs. She denies difficulties chewing or swallowing. NKFA.Pt reports that she takes Niacin, Magnesium and Potassium at home. Malnutrition Assessment: Malnutrition Status: At risk for malnutrition Context: Acute illness or injury Findings of the 6 clinical characteristics of malnutrition (Minimum of 2 out of 6 clinical characteristics is required to make the diagnosis of moderate or severe Protein Calorie Malnutrition based on AND/ASPEN Guidelines): 1. Energy Intake-(Patient reports her appetite/oral intake decreased past few days due to her drinking. ), 2. Weight Loss-No significant weight loss(Pt reports that her weight varies between 120-130 lbs. ), 3. Fat Loss-No significant subcutaneous fat loss, 4. Muscle Loss-No significant muscle mass loss, 5. Fluid Accumulation-No significant fluid accumulation, 6. Retail Banker Strength-Not measured Nutrition Risk Level: High Nutrient Needs: Estimated Daily Total Kcal: 25-30 kcals per kg = 4311-2084 kcals per day Estimated Daily Protein (g): 1.2-1.4 gm per kg = 65-76 gm per day Estimated Daily Total Fluid (ml/day): 7901-9557 ml per day OR per MD Nutrition Diagnosis: Problem: Inadequate oral intake Etiology: related to (EtOH) ? Signs and symptoms: as evidenced by Patient report of Objective Information: Nutrition-Focused Physical Findings: Abdomen WDL, no edema. labs: Na+a= 132, Cr .42, Albumin 4.5, Ethanol .175. Meds: MVI, Thiamine, IV Fluid. Wound Type: None(Mehdi = 19) Current Nutrition Therapies: Oral Diet Orders: General Oral Diet intake: (RD assist with breakfast order this am. ) Oral Nutrition Supplement (ONS) Orders: None ONS intake: (no supplements ordered) Anthropometric Measures: Ht: 5' 3 (160 cm) Current Body Wt: 120 lb (54.4 kg)(standing scale) Usual Body Wt: (120-130 lbs per pt) [place] Body Wt: 115 lb (52.2 kg), % [place] Body 104% BMI Classification: BMI 18.5 - 24.9 Normal Weight Nutrition Interventions: Continue current diet, Start ONS Continued Inpatient Monitoring Nutrition Evaluation: Evaluation: Goals set Goals: Patient consume > 75% of her meals and oral nutitional supplement. Monitoring: Meal Intake, Supplement Intake, Skin Integrity, I&O, Weight, Pertinent Labs Contact Number: [phone] documented in this encounter Medications Administered Section Active Administered Medications - up to 3 most recent administrations Medication Order MAR Action Action Date Dose Rate Site PHENYLephrine 2.5 % 1 Drop (AK-DILATE, MALIKA-SYNEPHRINE) 1 Drop, BOTH EYES, DIRECTED, Starting on Geraldine 01/16/23 at 0930, Until Geraldine 01/16/23 at 212, Administer for dilation PROTECT FROM LIGHT Given 01/16/2023 9:54 AM EDT 1 Drop proparacaine 0.5 % 1 Drop (ALCAINE) 1 Drop, BOTH EYES, DIRECTED, Starting on Geraldine 01/16/23 at 0930, Until Geraldine 01/16/23 at 2129, Administer for pneumo tonometry, tonopen tonometry, or pachymetry. In the event of a proparacaine shortage, administer tetracaine 0.5% ophthalmic drops 1 drop in the left eye as directed for pneumo tonometry, tonopen tonometry, or pachymetry Given 01/16/2023 9:54 AM EDT 1 Drop tropicamide 1 % 1 Drop (MYDRIACYL) 1 Drop, BOTH EYES, DIRECTED, Starting on Geraldine 01/16/23 at 0930, Until Geraldine 01/16/23 at 2129, Administer for dilation Given 01/16/2023 9:54 AM EDT 1 Drop Active Administered Medications - up to 3 most recent administrations Medication Order MAR Action Action Date Dose Rate Site PHENYLephrine 2.5 % 1 Drop (AK-DILATE, MALIKA-SYNEPHRINE) 1 Drop, BOTH EYES, DIRECTED, Starting on Fri01/29/23 at 1130, Until Fri01/29/23 at 2329, Administer for dilation PROTECT FROM LIGHT Given 01/29/2023 11:43 AM EDT 1 Drop proparacaine 0.5 % 1 Drop (ALCAINE) 1 Drop, BOTH EYES, DIRECTED, Starting on Fri01/29/23 at 1130, Until Fri01/29/23 at 232, Administer for pneumo tonometry, tonopen tonometry, or pachymetry. In the event of a proparacaine shortage, administer tetracaine 0.5% ophthalmic drops 1 drop in the left eye as directed for pneumo tonometry, tonopen tonometry, or pachymetry Given 01/29/2023 11:43 AM EDT 1 Drop tropicamide 1 % 1 Drop (MYDRIACYL) 1 Drop, BOTH EYES, DIRECTED, Starting on Fri01/29/23 at 1130, Until Fri01/29/23 at 232, Administer for dilation Given 01/29/2023 11:43 AM EDT 1 Drop Additional Source Comments INFORMATION SOURCE (unrecogn ized section and content) DATE CREATED AUTHOR AUTHOR'S ORGANIZ ATION 12/14/2018 [facility] DATE CREATED AUTHOR AUTHOR'S ORGANIZ ATION 12/30/2019 [facility] DATE CREATED AUTHOR AUTHOR'S ORGANIZ ATION 12/30/2019 [facility] DATE CREATED AUTHOR AUTHOR'S ORGANIZ ATION 08/23/2022 [facility] DATE CREATED AUTHOR AUTHOR'S ORGANIZ ATION 06/18/2023 [facility] Reason for Visit (unrecogniz ed section and content) Reason Comments Decreased Vision Both Eyes Reason Comments Cataract Evaluation Reason Comments Schedule Surgery Phaco right eye Reason Onset Date Comments Refill Request 04/28/2023 post-op drops ri ght eye Reason Comments Returning Patient's Call Source Comments (unrecognize d section and content) In the event this informatio n is protected by the Federal Confidentiality of Alcohol and Drug Abuse Patient Records regulations: The Federal rules restrict any use of the information to criminally investigate or prosecute any alcohol or drug abuse patient.[facility] the event this information is protected by the Federal Confidentiality of Alcohol and Drug Abuse Patient Records regulations: The Federal rules restrict any use of the information to criminally investigate or prosecute any alcohol or drug abuse patient.[facility] the event this information is protected by the Federal Confidentiality of Alcohol and Drug Abuse Patient Records regulations: The Federal rules restrict any use of the information to criminally investigate or prosecute any alcohol or drug abuse patient.[facility] the event this information is protected by the Federal Confidentiality of Alcohol and Drug Abuse Patient Records regulations: The Federal rules restrict any use of the information to criminally investigate or prosecute any alcohol or drug abuse patient.[facility] the event this information is protected by the Federal Confidentiality of Alcohol and Drug Abuse Patient Records regulations: The Federal rules restrict any use of the information to criminally investigate or prosecute any alcohol or drug abuse patient.[facility] the event this information is protected by the Federal Confidentiality of Alcohol and Drug Abuse Patient Records regulations: The Federal rules restrict any use of the information to criminally investigate or prosecute any alcohol or drug abuse patient.[facility] Care Teams (unrecognized sec tion and content) [employer] Traffic [employer] Specialist Relationship Specialty Start Date End Date Luz Edwards DO [address] [place] [address] PCP - General Family Medicine 09/27/19 [employer] Traffic [employer] Specialist Relationship Specialty Start Date End Date Luz Edwards DO [address] [place] [address] PCP - General Family Medicine 09/27/19 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 This clinical summary was aggregated from multiple sources. Caution should be exercised in using it in the provision of clinical care. This summary normalizes information from multiple sources, and as a consequence, information in this document may materially change the coding, format and clinical context of patient data. In addition, data may be omitted in some cases. CLINICAL DECISIONS SHOULD BE BASED ON THE PRIMARY CLINICAL RECORDS. [employer] [facility]. provides no warranty or guarantee of the accuracy or completeness of information in this document.
[2023-06-26 16:32] LABS: ALB/GLOB Ratio 0.9 RATIO (0.9-2.4); AST(SGOT) 104 U/L (15-37); Alanine Aminotransfer ALT/SGPT 59 U/L (13-56); Albumin, Serum 3.7 g/dL (3.2-5.0); Alkaline Phosphatase 70 U/L (45-117); Anion Gap 6 (5-15); BUN 7 mg/dL (7-18); BUN/Creat Ratio 8.5 RATIO (10-20); Calcium,Total 9.1 mg/dL (8.5-10.1); Chloride 100 mmol/L (98-107); Creatinine, Serum 0.82 mg/dL (0.55-1.02); EST Glomerular Filtration Rate 73 mL/min (>60); Est Glom Filt Rate - Afr Amer 89 mL/min (>60); Globulin 3.9 g/dL (2.2-4.2); Glucose 92 mg/dL (74-106); Potassium 3.4 mmol/L (3.5-5.1); Protein, Total 7.6 g/dL (6.4-8.2); Sodium Level 139 mmol/L (136-145)
[2023-06-26 16:44] LABS: Hemoglobin A1c 5.4 % (3.8-5.6)
== END | disposition home or self-care (01) ==
LOC: BIMLAB 12:13
PROVIDERS: PCP Internal Medicine; Referring Provider Nurse Practitioner; Visit Provider Nurse Practitioner
DX: R73.09 Other abnormal glucose (principal); R35.89 Other polyuria
CPT/HCPCS: 36415; 80053; 83036

== ENCOUNTER → 2023-09-02 | Outpatient (CLI) | payer MEDICARE, SELFPAY ==
[2023-09-02 16:36] LABS: Anion Gap 8 (5-15); BUN 10 mg/dL (7-18); BUN/Creat Ratio 11.8 RATIO (10-20); Calcium,Total 9.7 mg/dL (8.5-10.1); Chloride 101 mmol/L (98-107); Creatinine, Serum 0.85 mg/dL (0.55-1.02); EST Glomerular Filtration Rate 70 mL/min (>60); Est Glom Filt Rate - Afr Amer 85 mL/min (>60); Glucose 112 mg/dL (74-106); Potassium 3.7 mmol/L (3.5-5.1); Sodium Level 139 mmol/L (136-145)
== END | disposition home or self-care (01) ==
LOC: BIMLAB 14:19
PROVIDERS: PCP Internal Medicine; Referring Provider Nurse Practitioner; Visit Provider Nurse Practitioner
DX: Z01.818 Encounter for other preprocedural examination (principal)
CPT/HCPCS: 36415; 80048

== ENCOUNTER → 2023-10-07 | Outpatient (CLI) | payer MEDICARE, SELFPAY | END | disposition home or self-care (01) | PROVIDERS: PCP Internal Medicine; Referring Provider Nurse Practitioner; Visit Provider Nurse Practitioner | DX: R69 Illness, unspecified (principal) | CPT/HCPCS: J7040; A4216 ==

== ENCOUNTER → 2023-11-27 | Outpatient (CLI) | payer MEDICARE, SELFPAY ==
--- NOTE | 2023-11-27 10:59 | ECHOD_ITS ---
Reason For Study: Abnormal EKG Procedure This was a 2D Doppler, Color Flow transthoracic echocardiogram. Exam performed in department. Left Ventricle Normal LV size. Severe concentric left ventricular hypertrophy. The left ventricular ejection fraction is 70 %. Resting LV gradient 13 mmHg. Valsalva LV gradient 85 mmHg. Mid cavitary dynamic gradient 85 mm/Hg. No regional wall motion abnormalities noted. Right Ventricle Normal RV size. Normal systolic function. Atria Normal left atrium. Normal right atrium. Mitral Valve There is mild to moderate mitral annular calcification. Mild (1+) eccentric mitral valve insufficiency. Tricuspid Valve Normal tricuspid valve. Mild (1+) tricuspid valve insufficiency. Pulmonary artery systolic pressure is 30 mmHg. Aortic Valve Trisinus/trileaflet aortic valve. Mild focal aortic valve calcification. Pulmonic Valve Normal pulmonic valve. Great Vessels Normal aortic root. The pulmonary artery is normal size. Normal inferior vena cava. Pericardium/Pleural No pericardial effusion. MMode/2D Measurements & Calculations LVIDd: 2.3 cm IVSd: 2.1 cm Ao root diam: 3.3 cm LVIDs: 1.6 cm LVPWd: 1.9 cm LA dimension: 4.0 cm RVDd: 3.6 cm FS: 30.6 % LAV(MOD-bp): 58.0 ml LVAd ap4: 17.7 cm2 SV(MOD-sp4): 32.6 ml LAV(MOD-bp) Indexed: 35.2 ml/m2 LVLd ap4: 6.7 cm LAV(MOD-sp2): 58.4 ml EDV(MOD-sp4): 38.4 ml LAV(MOD-sp4): 57.9 ml EDV(sp4-el): 39.8 ml LVAs ap4: 5.5 cm2 LVLs ap4: 4.9 cm ESV(MOD-sp4): 5.8 ml ESV(sp4-el): 5.3 ml EF(MOD-sp4): 84.8 % EF(sp4-el): 86.8 % SV(sp4-el): 34.6 ml LA A4 area: 19.4 cm2 RA A4 area: 13.3 cm2 Time Measurements MV dec time: 0.35 sec Doppler Measurements & Calculations MV E max celestino: 82.0 cm/sec Lat Peak E' Celestino: 3.3 cm/sec Med Peak E' Celestino: 4.3 cm/sec MV A max celestino: 132.5 cm/sec E/E' lat: 25.0 E/E' med: 19.2 MV E/A: 0.62 MV V2 max: 155.1 cm/sec MV P1/2t max celestino: 97.6 cm/sec Ao V2 max: 114.0 cm/sec MV max P.6 mmHg MV P1/2t: 125.3 msec Ao max P.2 mmHg MV V2 mean: 76.8 cm/sec Ao V2 mean: 83.8 cm/sec MV mean P.8 mmHg MV dec slope: 228.2 cm/sec2 Ao mean P.1 mmHg MV V2 VTI: 37.2 cm MVA(P1/2t): 1.8 cm2 Ao V2 VTI: 27.5 cm AV (velocity ratio): 0.99 LV V1 max: 110.9 cm/sec PA V2 max: 99.4 cm/sec TR max celestino: 261.5 cm/sec LV V1 max P.9 mmHg PA max PG (full): 1.1 mmHg TR max P.4 mmHg LV V1 mean P.9 mmHg PA V2 mean: 78.4 cm/sec LV V1 mean: 80.0 cm/sec PA mean PG (full): 0.95 mmHg LV V1 VTI: 27.3 cm ECHO/Echo Complete Interpretation Summary Normal LV size. Severe concentric left ventricular hypertrophy. The left ventricular ejection fraction is 70 %. Resting LV gradient 13 mmHg. Valsalva LV gradient 85 mmHg. Pulmonary artery systolic pressure is 30 mmHg. Mid cavitary dynamic gradient 85 mm/Hg. Ordering Physician: Fariba Gates Referring Physician: Denise Summers Performed By: Sen Anderson RCS
== END | disposition home or self-care (01) ==
LOC: CVS 10:58
PROVIDERS: PCP Internal Medicine; Referring Provider Nurse Practitioner; Visit Provider Nurse Practitioner
DX: R06.09 Other forms of dyspnea (principal)
CPT/HCPCS: 93306

== ENCOUNTER → 2023-12-25 | Outpatient (CLI) | payer MEDICARE, SELFPAY | END | disposition home or self-care (01) | PROVIDERS: PCP Internal Medicine; Referring Provider Internal Medicine Cardiovascular Disease; Visit Provider Internal Medicine Cardiovascular Disease | DX: R06.09 Other forms of dyspnea (principal) | CPT/HCPCS: 93225; 93226 ==

== ENCOUNTER → 2024-07-06 | Outpatient (CLI) | payer MEDICARE, SELFPAY ==
--- NOTE | 2024-07-06 09:06 | RDU_ITS ---
Reason For Study: Hypertension Right Renal Artery Left Renal Artery Right renal artery ostium Left renal artery ostium 95.4/14.3 105.1/15.1 RSV/EDV. PSV/EDV. Right renal artery proximal Left renal artery proximal PSV/EDV 102.9/15.1 PSV/EDV. 82.3/16.5 . Right renal artery mid 110.8/23.1 Left renal artery mid 93.2/14.3 PSV/EDV. PSV/EDV . Right renal artery distal 88.6/15.6 Left renal artery distal 120.4/17.3 PSV/EDV. PSV/EDV. Right RAR 1.2. Left RAR 1.3. Right Renal Parenchyma Left Renal Parenchyma Upper Pole Medula 38.3/7.2 PSV/EDV. Left upper pole medulla 24.3/5.3 Right upper pole medulla EDR 0.2 . PSV/EDV . Right upper pole medulla R.I. Left upper pole medulla EDR 0.2 . 0.81 . Left upper pole medulla R.I. 0.78 . Upper Andrews Cortx 15.3/5.4 PSV/EDV. UP Cortex 15.1/2.2 PSV/EDV. Right upper pole cortex EDR 0.4 . Left upper pole cortex EDR 0.1 . Right upper pole cortex R.I. 0.65 . Left upper pole cortex R.I. 0.85 . Right lower Pole medulla 41.9/10.0 Left lower Pole medulla 37.2/9.0 PSV/EDV . PSV/EDV . Right lower pole medulla EDR 0.2 . Left lower pole medulla EDR 0.2 . Right lower pole medulla R.I. Left lower pole medulla R.I. 0.76 . 0.76 . Lower Pole Cortx 17.6/4.7 PSV/EDV. Lower Pole Cortex 23.9/6.1 PSV/EDV. Left lower pole cortex EDR 0.3 . Right lower pole cortex EDR 0.3 . Left lower pole cortex R.I. 0.73 . Right lower pole cortex R.I. 0.75 . Left Renal Hilar Right Renal Hilar LT Hilar avg 80.6/13.0 PSV/EDV . Right Hilar avg 60.1/12.2 PSV/EDV. Left hilar acceleration time 110 Right hilar acceleration time 30 m/sec. m/sec. Left Renal Dimensions Right Renal Dimensions Left kidney size 10.28 cm . Right kidney size 10.03 cm . Left cortical dimension 1.24 cm . Right cortical dimension 1.42 cm . Aorta Proximal abdominal aorta 1.61x1.62 cm . Proximal abdominal aorta peak systolic velocity is 90.4 cm/sec . Distal abdominal aorta 1.19x1.11 cm . Distal abdominal aorta peak systolic velocity is 83.2 cm/sec . VL/Renal Artery Duplex Ultrasound Interpretation Summary Right renal artery patent with normal velocities and no evidence of stenosis. Left renal artery patent with normal velocities and no evidence of stenosis. Right renal vein patent. Left renal vein patent. Right kidney normal in size. Left kidney normal in size. Ordering Physician: Myles De Los Santos Referring Physician: Denise Summers Performed By: Hong Ruiz RVT and Student
== END | disposition home or self-care (01) ==
LOC: CVS 09:01
PROVIDERS: PCP Internal Medicine; Referring Provider Internal Medicine Cardiovascular Disease; Visit Provider Internal Medicine Cardiovascular Disease
DX: I10 Essential (primary) hypertension (principal); I42.1 Obstructive hypertrophic cardiomyopathy; Z91.148 Patient's other noncompliance with medication regimen for other reason; K75.9 Inflammatory liver disease, unspecified
CPT/HCPCS: 93975

== ENCOUNTER → 2024-07-12 | Outpatient (CLI) | payer MEDICARE, SELFPAY ==
[2024-07-12 16:53] LABS: Absolute Lymphocyte Count 2.25 X10^3/uL (0.83-4.51); Absolute Neutrophil Count 3.1 X10^3/uL (2.0-7.7); Basophil# 0.03 X10^3/uL; Basophil% 0.5 % (0-1); Eosinophil# 0.06 X10^3/uL; Hemoglobin 14.3 g/dL (12.0-15.0); Lymphocyte # 2.25 X10^3/ul (0.83-4.51); Lymphocyte % 37.4 % (19-41); Mean Corp Hgb Conc 32.5 g/dL (32-36); Mean Corpuscular Volume 101.6 fL (81-99); Mean Platelet Vol. 10.5 fl (6.2-12.0); Monocyte# 0.53 X10^3/uL; Monocyte% 8.8 % (0-10); NRBC Flagged by Analyzer 0 % (0-5); Neutrophil # 3.14 X10^3/uL (2.7-7.7); Neutrophil % 52.1 % (47-70); Platelet Count 462 K/mm3 (150-450); RBC Distribution Width CV 13.3 % (11.6-14.6); RBC Distribution Width SD 50.6 fl (35.1-43.9); Red Blood Count 4.33 M/mm3 (4.2-5.4)
[2024-07-12 17:21] LABS: ALB/GLOB Ratio 0.9 RATIO (0.9-2.4); AST(SGOT) 23 U/L (15-37); Alanine Aminotransfer ALT/SGPT 45 U/L (13-56); Albumin, Serum 3.9 g/dL (3.2-5.0); Alkaline Phosphatase 62 U/L (45-117); Anion Gap 7 (5-15); BUN 18 mg/dL (7-18); Calcium,Total 9.7 mg/dL (8.5-10.1); Chloride 106 mmol/L (98-107); Cholesterol 270 mg/dL (200); Creatinine, Serum 0.78 mg/dL (0.55-1.02); EST Glomerular Filtration Rate 77 mL/min (>60); Est Glom Filt Rate - Afr Amer 93 mL/min (>60); Globulin 4.2 g/dL (2.2-4.2); Glucose 84 mg/dL (74-106); High Density Lipoprotein 75 mg/dL; Potassium 4.7 mmol/L (3.5-5.1); Protein, Total 8.1 g/dL (6.4-8.2); Sodium Level 138 mmol/L (136-145); Triglycerides 152 mg/dL; Very Low Density Lipoprotein 30 mg/dL (5-40)
== END | disposition home or self-care (01) ==
LOC: BIMLAB 14:27
PROVIDERS: Internal Medicine Cardiovascular Disease; PCP Internal Medicine; Referring Provider Internal Medicine; Visit Provider Internal Medicine
DX: I11.9 Hypertensive heart disease without heart failure (principal); Z91.148 Patient's other noncompliance with medication regimen for other reason; R06.09 Other forms of dyspnea
CPT/HCPCS: 36415; 80053; 80061; 84443; 85025

== ENCOUNTER → 2024-10-18 | Outpatient (CLI) | payer MEDICARE, SELFPAY ==
[2024-10-18 16:38] LABS: Absolute Lymphocyte Count 2.12 X10^3/uL (0.83-4.51); Absolute Neutrophil Count 2.7 X10^3/uL (2.0-7.7); Basophil# 0.05 X10^3/uL; Basophil% 0.9 % (0-1); Eosinophil# 0.06 X10^3/uL; Hematocrit 37.2 % (37-47); Lymphocyte # 2.12 X10^3/ul (0.83-4.51); Lymphocyte % 36.6 % (19-41); Mean Corp Hgb Conc 32.3 g/dL (32-36); Mean Corpuscular Hgb 32.6 pg (27.0-32.0); Mean Corpuscular Volume 101.1 fL (81-99); Mean Platelet Vol. 10.3 fl (6.2-12.0); Monocyte# 0.82 X10^3/uL; Monocyte% 14.2 % (0-10); NRBC Flagged by Analyzer 0 % (0-5); Neutrophil # 2.73 X10^3/uL (2.7-7.7); Neutrophil % 47.1 % (47-70); Platelet Count 489 K/mm3 (150-450); RBC Distribution Width CV 15.7 % (11.6-14.6); RBC Distribution Width SD 58.4 fl (35.1-43.9); Red Blood Count 3.68 M/mm3 (4.2-5.4); White Blood Count 5.8 K/mm3 (4.4-11.0)
[2024-10-18 17:34] LABS: ALB/GLOB Ratio 1.4 RATIO (0.9-2.4); AST(SGOT) 91 U/L (<=31); Alanine Aminotransfer ALT/SGPT 114 U/L (<=34); Albumin, Serum 4.2 g/dL (3.4-4.8); Alkaline Phosphatase 74 U/L (35-104); Anion Gap 14 (5-15); BUN 12 mg/dL (4-19); BUN/Creat Ratio 20.7 RATIO (10-20); Calcium,Total 9.8 mg/dL (7.6-11.0); Carbon Dioxide 25.5 mmol/L (21.0-32.0); Chloride 103 mmol/L (98-108); Creatinine, Serum 0.58 mg/dL (0.70-1.20); EST Glomerular Filtration Rate 97 (>60); Globulin 3.1 g/dL (2.2-4.2); Glucose 145 mg/dL (70-99); Potassium 3.9 mmol/L (3.3-5.1); Protein, Total 7.3 g/dL (5.9-8.4); Sodium Level 142 mmol/L (133-145); Total Bilirubin 0.33 mg/dL (0.00-1.30); Vitamin B12 405 pg/mL (180-914)
== END | disposition home or self-care (01) ==
LOC: BIMLAB 15:40
PROVIDERS: PCP Internal Medicine; Referring Provider Internal Medicine; Visit Provider Internal Medicine
DX: I10 Essential (primary) hypertension (principal); F10.10 Alcohol abuse, uncomplicated
CPT/HCPCS: 36415; 80053; 82607; 84425; 85025